=== PATIENT | female | born 1935 | race Caucasian/White ===

== ENCOUNTER → 2018-03-20 | Outpatient (CLI) | payer MEDICARE, OTHER ==
--- NOTE | 2018-03-20 15:25 | US ---
EXAMINATION TYPE: US kidneys/renal and bladder DATE OF EXAM: 03/20/2018 COMPARISON: NONE CLINICAL HISTORY: Renal Failure N18.9. 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 EXAM MEASUREMENTS: Right Kidney: 7.4 x 2.6 x 2.8 cm Left Kidney: 12.0 x 6.5 x 5.8 cm Right Kidney: atrophied, cyst measures 1.8 x 1.6 x 1.9 cm Left Kidney: No hydronephrosis or masses seen Bladder: wnl Bilateral Jets seen: No There is no evidence for hydronephrosis at this point in time. No nephrolithiasis is seen. No princess s are identified. The urinary bladder is anechoic. Bilateral ureteral jets are seen. IMPRESSION: 1. Atrophic changes of the right kidney with simple appearing cyst.
== END | disposition home or self-care (01) ==
LOC: RADUSWWP 14:44
PROVIDERS: ATTEND Family Medicine
DX: N28.1 Cyst of kidney, acquired (principal); N26.1 Atrophy of kidney (terminal)
CPT/HCPCS: 76770

== ENCOUNTER → 2018-03-27 | Outpatient (CLI) | payer MEDICARE, OTHER ==
--- NOTE | 2018-03-27 15:54 | BD ---
EXAMINATION TYPE: Axial Bone Density DATE OF EXAM: 03/27/2018 COMPARISON: 02.08.2016 CLINICAL HISTORY: 82 YR OLD FEMALE....ICD-10 CODE: Z78.0 ASYMPTOMATIC MENOPAUSAL STATE Height: 63.4 Weight: 161 FRAX RISK QUESTIONS: Secondary Osteoporosis: YES 3. Menopause before 45: YES RISK FACTORS HISTORY OF: Active: MUCH AGE WILL ALLOW Diet low in dairy products/other sources of calcium: NO Postmenopausal woman: SURGICAL AT 43 YRS OLD Take estrogen and/or progesterone medications: ESTROGEN FOR 5-7 YRS, NONE NOW Lost more than 2 inches in height since high school: YES Frequent falls: UNSTEADY Poor Health: ELDERLY MEDICATIONS: Thyroid Medications: YES, SYNTHROID, X10 YRS Additional Medications: BP MEDS Additional History: HYPERTENSION, ARTHRITIS, EXAM MEASUREMENTS: Bone mineral densitometry was performed using the [employer] System. Bone mineral density as measured about the Lumbar spine is: ----- L1-L4(G/cm2): 1.191 T Score Values are as follows: ----- L1: -1.6 ----- L2: -0.1 ----- L3: 1.5 ----- L4: 0.4 ----- L1-L4: 0.1 Bone mineral density has: Increased 6.7% SINCE 02.08.2016 Bone mineral density about the R hip (g/cm2): 0.887 Bone mineral density about the L hip (g/cm2): 0.864 T Score values are as follows: -----R Neck: -0.7 -----L Neck: -0.7 -----R Total: -1.1 -----L Total: -1.0 Bone mineral density has: Increased 3.4% SINCE 02.08.2016 FRAX%S: THERE IS A 10.5% CHANCE OF A MAJOR OSTEOPOROTIC FX AND A 2.0% FOR HIP FX.....PROBABILITY O F FX IN 10 YRS TIME IMPRESSION: Normal bone density NOTE: T-SCORE=SD OF THE YOUNG ADULT MEAN.
== END | disposition home or self-care (01) ==
LOC: RADBDWWP 14:22
PROVIDERS: ATTEND Family Medicine
DX: Z78.0 Asymptomatic menopausal state (principal)
CPT/HCPCS: 77080

== ENCOUNTER → 2019-03-01 | Outpatient (CLI) | payer MEDICARE, OTHER ==
--- NOTE | 2019-03-01 12:15 | XR ---
EXAMINATION TYPE: XR Hip Bilateral Complete DATE OF EXAM: 03/01/2019 COMPARISON: NONE HISTORY: Pain TECHNIQUE: 2 views submitted FINDINGS: Severe bilateral arthropathy of the right hip with hypertrophic changes. No acute fracture or disloca tion. Changes of sacroiliitis noted. IMPRESSION: 1. Severe bilateral hip arthropathy.
== END | disposition home or self-care (01) ==
LOC: RADXRMAIN 11:27
PROVIDERS: ATTEND Family Medicine
DX: M16.0 Bilateral primary osteoarthritis of hip (principal)
CPT/HCPCS: 73521

== ENCOUNTER → 2019-03-29 | Outpatient (CLI) | payer MEDICARE, OTHER ==
--- NOTE | 2019-04-02 10:43 | MM ---
Reason for exam: screening (asymptomatic). Last mammogram was performed 11 years and 1 month ago. History: Patient is postmenopausal. Physical Findings: A clinical breast exam by your physician is recommended on an annual basis and results should be correlated with mammographic findings. MG 3D Screening Mammo W/Cad Bilateral CC and MLO view(s) were taken. Prior study comparison: March 11, 2008, bilateral digital screening mammogram. March 08, 2007, CAD bilateral diagnostic mammogram. March 24, 2006, bilateral screening mammogram w/CAD. The breast tissue is heterogeneously dense. This may lower the sensitivity of mammography. No significant changes when compared with prior studies. ASSESSMENT: Negative, BI-RAD 1 RECOMMENDATION: Routine screening mammogram of both breasts in 1 year.
== END | disposition home or self-care (01) ==
LOC: RADMAMWWP 11:00
PROVIDERS: ATTEND Family Medicine
DX: Z12.31 Encounter for screening mammogram for malignant neoplasm of breast (principal)
CPT/HCPCS: 77063; 77067

== ENCOUNTER → 2019-05-21 | Outpatient (CLI) | payer MEDICARE, OTHER ==
[2019-05-21 12:31] LABS: HCT 40.3 % (34.0-46.0); MCH 30.6 pg (25.0-35.0); MCHC 32.2 g/dL (31.0-37.0); MCV 94.9 fL (80.0-100.0); Mean Platelet Volume 7.6; Platelet Count 221 k/uL (150-450); RBC 4.24 m/uL (3.80-5.40); RDW 14.1 % (11.5-15.5)
[2019-05-21 12:51] LABS: Potassium 5.2 mmol/L (3.5-5.1)
== END | disposition home or self-care (01) ==
LOC: LABPAT 11:49
PROVIDERS: ATTEND Internal Medicine Interventional Cardiology
DX: Z01.812 Encounter for preprocedural laboratory examination (principal); R07.89 Other chest pain; I10 Essential (primary) hypertension
CPT/HCPCS: 36415; 80051; 82565; 84520; 85027

== ENCOUNTER 2019-05-24 06:25 | Day surgery (SDC) | payer MEDICARE, OTHER ==
[2019-05-21 11:14] VITALS: BMI 28.9
[2019-05-24] MEDS ORDERED: NITROGLYCERIN SL TABS 0.4 MG TAB SUBLINGUAL PRN (06:29)
[2019-05-24] MEDS ORDERED: ASPIRIN 325 MG TAB PO STA (06:29)
[2019-05-24] MEDS ORDERED: SODIUM CHLORIDE 0.9% 1,000 ML in EMPTY BAG 1 BAG IV ONE (06:29)
[2019-05-24] MEDS ORDERED: ATORVASTATIN 80 MG TAB PO STA (06:29)
[2019-05-24] MEDS ORDERED: ALPRAZolam 0.5 MG TAB PO PRN (06:29)
[2019-05-24] MEDS ORDERED: ALPRAZolam 0.25 MG TAB PO PRN (06:29)
[2019-05-24 07:06] VITALS: TEMP 97.8
[2019-05-24] MEDS ORDERED: fentaNYL (PF) 50 MCG/ML 2 ML AMP ONE (07:18)
[2019-05-24] MEDS ORDERED: LIDOCAINE 1% INJ 10MG/ML (20 ML MDV) ONE (07:18)
[2019-05-24] MEDS ORDERED: VERAPAMIL 2.5 MG/ML 2 ML AMP ONE (07:18)
[2019-05-24] MEDS ORDERED: fentaNYL (PF) 50 MCG/ML 2 ML AMP IV ONE (07:47)
[2019-05-24] MEDS ORDERED: LIDOCAINE 1% INJ 10MG/ML (20 ML MDV) SQ ONE (07:49)
[2019-05-24] MEDS ORDERED: MIDAZOLAM (PF) 2 MG/2 ML VIAL IV ONE (07:49)
[2019-05-24] MEDS ORDERED: VERAPAMIL SYRINGE (5 MG/10 ML) INTRAARTER ONE (07:50)
[2019-05-24] MEDS ORDERED: HEPARIN SODIUM 1,000 UN/ML (10ML VL) ONE (07:56)
[2019-05-24] MEDS ORDERED: HEPARIN SODIUM 1,000 UN/ML (10ML VL) IV ONE (07:57)
[2019-05-24] MEDS ORDERED: IOPAMIDOL-370 125ML BTL INJ ONE (08:05)
[2019-05-24] MEDS ORDERED: RX INFO: IV CONTRAST WAS GIVEN 1 EACH MISC MISCELLANE PRN (08:16)
[2019-05-24] MEDS ORDERED: SODIUM CHLORIDE 0.9% 1,000 ML IV SCH (08:30)
--- NOTE | 2019-05-24 08:40 | CC ---
CARDIAC CATHETERIZATION REPORT Mrs. Sanchez is an 83-year-old female with known history of hypertension, hyperlipidemia, who has been complaining of episode of chest discomfort and had an abnormal myocardial perfusion imaging. She is scheduled to undergo total hip arthroplasty and because of her findings, recommendation was made regarding cardiac catheterization. The procedure as well as the risks and the complications were discussed with the patient who is in full understanding and agreement. PROCEDURE: Patient was brought to the lab scientist in a fasting semi-sedated state after receiving fentanyl and Benadryl and achieving moderate conscious sedated state. Using Xylocaine anesthesia in the Seldinger technique a 6-Ghanaian sheath was introduced in the right radial artery. Selective right and left coronary angiography was performed using 5- Ghanaian 3.5 bend right and left Jim catheter. Multiple views including hemiaxial views were obtained. Following that using the 5-Ghanaian left Jim catheter, the aortic valve was crossed and pressures were calculated. Following that, catheter and sheaths were removed. Hemostasis was obtained with deployment of a TR band. There was no immediate complication. The patient was returned to her room in stable condition. Of note, the patient received 4000 units of intravenous heparin as well as intra- arterial verapamil. FINDINGS: LEFT MAIN: This is a short size vessel bifurcating IN left circumflex, left anterior descending artery. Left main coronary artery has no evidence of high-grade stenosis. LEFT ANTERIOR DESCENDING ARTERY: This vessel tapers down distal 3rd and gives rise to 2 diagonal branches. Left anterior descending artery in mid segment has mild intimal disease of 10% to 20% without any evidence of high-grade stenosis. LEFT CIRCUMFLEX: This is a nondominant vessel giving rise to moderately sized obtuse marginal branch. The left circumflex has mild intimal disease of 10% to 20% without any evidence of high-grade stenosis. RIGHT CORONARY ARTERY: This is a large dominant vessel bifurcating distally PDA and posterolateral segment and branches. The right PDA reaches toward the inferoapical wall. The right coronary artery in mid segment has a 20% plaque. The rest of the vessel has no high-grade stenosis. LEFT VENTRICULOGRAM: The left ventriculogram was not performed. HEMODYNAMICS: There was no gradient across the aortic valve. The left ventricular end- diastolic pressure was 14 to 16 mmHg. CONCLUSION: 1. Mild triple-vessel coronary artery disease. 2. Normal ventricular end-diastolic pressure. RECOMMENDATION: In view of finding anatomy, I recommend to continue medical therapy with the aggressive coronary risk modifications that have been initiated. Those findings and recommendation were discussed with the patient and her family and they are in full understanding and agreement. Duration of procedure is 16 minutes. TOM / VINI: [id number] /
[2019-05-24] MEDS ORDERED: METOPROLOL TARTRATE 25 MG TAB PO SCH (09:00)
[2019-05-24] MEDS ORDERED: LISINOPRIL 10 MG TAB PO SCH (09:00)
[2019-05-24] MEDS ORDERED: LEVOTHYROXINE 100 MCG TAB PO SCH (09:00)
[2019-05-24] MEDS ORDERED: ASPIRIN 81 MG PO SCH (09:00)
[2019-05-24 09:29] VITALS: RESP 18
[2019-05-24 14:21] VITALS: BP 129/60
[2019-05-24 14:22] VITALS: PULSE 52
[2019-05-24] MEDS ORDERED: METOPROLOL TARTRATE 12.5 MG TAB PO SCH (21:00)
== END 2019-05-24 13:45 | disposition home or self-care (01) ==
LOC: CATHCVL 06:25
PROVIDERS: ATTEND Internal Medicine Interventional Cardiology
DX: I25.10 Atherosclerotic heart disease of native coronary artery without angina pectoris (principal); I10 Essential (primary) hypertension; Z01.810 Encounter for preprocedural cardiovascular examination; E78.2 Mixed hyperlipidemia; E78.00 Pure hypercholesterolemia, unspecified; Z82.49 Family history of ischemic heart disease and other diseases of the circulatory system; Z79.82 Long term (current) use of aspirin; Z79.890 Hormone replacement therapy; Z79.899 Other long term (current) drug therapy; Z88.2 Allergy status to sulfonamides; Z88.8 Allergy status to other drugs, medicaments and biological substances
CPT/HCPCS: 93458; J2001; J3010; J1644; Q9967; J2250

== ENCOUNTER → 2020-02-10 | Outpatient (CLI) | payer MEDICARE, OTHER ==
[2020-02-10 08:51] LABS: Basophils % (A) 1 %; Eosinophils # (A) 0.2 k/uL (0-0.7); Eosinophils % (A) 4 %; HCT 40.2 % (34.0-46.0); HGB 13.3 gm/dL (11.4-16.0); Lymphocytes # (A) 1.2 k/uL (1.0-4.8); Lymphocytes % (A) 19 %; MCV 93.8 fL (80.0-100.0); Mean Platelet Volume 7.6; Monocytes # (A) 0.3 k/uL (0-1.0); Monocytes % (A) 4 %; Neutrophils # (A) 4.3 k/uL (1.3-7.7); Neutrophils % (A) 70 %; Platelet Count 221 k/uL (150-450); RBC 4.28 m/uL (3.80-5.40); RDW 12.8 % (11.5-15.5); WBC 6.2 k/uL (3.8-10.6)
[2020-02-10 15:27] LABS: African American GFR (CKD) 48.1 (60.0-200.0); Albumin 4.2 g/dL (3.80-4.90); Albumin/Globulin Ratio 1.91 (1.60-3.17); Anion Gap 4.8 mmol/L (4.00-12.00); Calcium 9.6 mg/dL (8.7-10.3); Carbon Dioxide 27.2 mmol/L (21.6-31.8); Chol/HDL Ratio 4.51; Globulin 2.2 g/dL (1.6-3.3); Non-African American GFR(CKD) 41.5 (60.0-200.0); Total Bilirubin 0.6 mg/dL (0.3-1.2); Total Protein 6.4 g/dL (6.2-8.2)
[2020-02-10 15:36] LABS: T4, Free (Free Thyroxine) 1.5 ng/dL (0.80-1.80)
== END | disposition home or self-care (01) ==
LOC: LABWHC1 08:24
PROVIDERS: ATTEND Family Medicine
DX: E78.5 Hyperlipidemia, unspecified (principal); E03.9 Hypothyroidism, unspecified
CPT/HCPCS: 36415; 80053; 80061; 84439; 84443; 84481; 85025

== ENCOUNTER → 2020-05-26 | Outpatient (CLI) | payer MEDICARE, OTHER ==
--- NOTE | 2020-05-26 13:32 | BD ---
EXAMINATION TYPE: Axial Bone Density DATE OF EXAM: 05/26/2020 COMPARISON: 03/27/2018 CLINICAL HISTORY: Height: 63 IN Weight: 161 LBS FRAX RISK QUESTIONS: Secondary Osteoporosis: 3. Menopause before 45: YES AGE 43 PARTIAL HYST RISK FACTORS HISTORY OF: Active: MODERATE Postmenopausal woman: PARTIAL HYST AGE43 Lost more than 2 inches in height since high school: YES 3" Frequent falls: YES DEPTH PERCEPTION AND BALANCE MEDICATIONS: Thyroid Medications: YES Which medication: LEVOTHYROXIN How Lon+ YEARS Additional Medications: LEVOTHYROXINE, LISINOPRIL, EXAM MEASUREMENTS: Bone mineral densitometry was performed using the [employer] System. Bone mineral density as measured about the Lumbar spine is: ----- L1-L4(G/cm2): 1.086 T Score Values are as follows: ----- L2: -2.2 ----- L3: -0.8 ----- L4: 0.1 ----- L1-L4: -0.8 Bone mineral density has: Decreased -13.2% since study of: 03/27/2018 Bone mineral density about the R hip (g/cm2): 0.819 Bone mineral density about the L hip (g/cm2): 0.863 T Score values are as follows: -----R Neck: -1.6 -----L Neck: -1.3 -----R Total: -1.4 -----L Total: -1.4 Bone mineral density has: Decreased -4.6% since study of: 03/27/2018 IMPRESSION: Osteopenia bilateral femora. NOTE: T-SCORE=SD OF THE YOUNG ADULT MEAN.
--- NOTE | 2020-06-01 12:03 | MM ---
Reason for exam: screening (asymptomatic). Last mammogram was performed 1 year and 2 months ago. History: Patient is postmenopausal. Physical Findings: A clinical breast exam by your physician is recommended on an annual basis and results should be correlated with mammographic findings. MG 3D Screening Mammo W/Cad Bilateral CC and MLO view(s) were taken. Prior study comparison: March 29, 2019, bilateral MG 3d screening mammo w/cad. The breast tissue is heterogeneously dense. This may lower the sensitivity of mammography. There are benign appearing vascular calcifications bilaterally. There is no discrete abnormality. ASSESSMENT: Benign, BI-RAD 2 RECOMMENDATION: Routine screening mammogram of both breasts in 1 year.
== END | disposition home or self-care (01) ==
LOC: RADMAMWWP 08:45
PROVIDERS: ATTEND Family Medicine
DX: Z12.31 Encounter for screening mammogram for malignant neoplasm of breast (principal); Z78.0 Asymptomatic menopausal state; M85.89 Other specified disorders of bone density and structure, multiple sites
CPT/HCPCS: 77063; 77067; 77080

== ENCOUNTER → 2020-12-28 | Outpatient (CLI) | payer MEDICARE, OTHER ==
[2020-12-28 18:32] LABS: Basophils # (A) 0.05 X 10*3/uL (0.00-0.10); Basophils % (A) 0.7 %; Eosinophils % (A) 1.4 %; HCT 41.8 % (37.2-46.3); HGB 13.2 g/dL (12.0-15.0); Lymphocytes % (A) 16.5 %; MCH 31.7 pg (27.0-32.0); MCHC 31.6 g/dL (32.0-37.0); MCV 100.2 fL (80.0-97.0); Mean Platelet Volume 10.6 fL (9.5-12.2); Monocytes # (A) 0.46 X 10*3/uL (0.20-1.00); Monocytes % (A) 6.3 %; Neutrophils # (A) 5.46 X 10*3/uL (1.80-7.70); Neutrophils % (A) 74.8 %; Platelet Count 228 X 10*3/uL (140-440); RBC 4.17 X 10*6/uL (4.10-5.20); RDW 13.7 % (11.5-14.5); WBC 7.29 X 10*3/uL (4.50-10.00)
[2020-12-28 20:59] LABS: African American GFR (CKD) 47.7 (60.0-200.0); Albumin 4.5 g/dL (3.80-4.90); Albumin/Globulin Ratio 2.37 (1.60-3.17); Anion Gap 7.6 mmol/L (4.00-12.00); Calcium 10.1 mg/dL (8.7-10.3); Carbon Dioxide 27.4 mmol/L (21.6-31.8); Chol/HDL Ratio 4.22; Globulin 1.9 g/dL (1.6-3.3); Non-African American GFR(CKD) 41.2 (60.0-200.0); Potassium 4.4 mmol/L (3.5-5.5); Total Bilirubin 0.7 mg/dL (0.3-1.2); Total Protein 6.4 g/dL (6.2-8.2)
[2020-12-28 21:07] LABS: T4, Free (Free Thyroxine) 1.4 ng/dL (0.80-1.80)
== END | disposition home or self-care (01) ==
LOC: LABWHC1 12:10
PROVIDERS: ATTEND Nurse Practitioner Family
DX: E03.9 Hypothyroidism, unspecified (principal); E78.5 Hyperlipidemia, unspecified; I10 Essential (primary) hypertension; L29.8 Other pruritus; L82.1 Other seborrheic keratosis; B02.29 Other postherpetic nervous system involvement
CPT/HCPCS: 36415; 80053; 80061; 84439; 84443; 85025

== ENCOUNTER 2023-04-08 12:00 | Observation (INO) | payer MEDICARE, OTHER ==
[2023-04-08] MEDS ORDERED: LABETALOL 5 MG/ML VIAL MDV IVP STA (12:10)
[2023-04-08] MEDS ORDERED: SODIUM CHLORIDE 0.9% 1,000 ML IV STA (12:10)
[2023-04-08 12:21] LABS: Glucose,Whole Blood 103 mg/dL (70-110)
--- NOTE | 2023-04-08 12:28 | ED ---
Neuro HPI - General Chief Complaint: Neuro Symptoms/Deficit Stated Complaint: neuro issues Time Seen by Provider: 04/08/23 12:09 Source: patient, RN notes reviewed, old records reviewed Mode of arrival: wheelchair Limitations: no limitations - History of Present Illness Is the patient presenting with stroke symptoms?: Yes -: minutes(s) Initial Comments: This is a 7-year-old female with high blood pressure high cholesterol coming in for evaluation regards to possible stroke altered mental status drooling confusion. History of difficult to obtain from patient secondary to some underlying dementia and son at bedside provides history Location: speech, dysarthria History of same: No Place: home Severity: moderate Quality: weak Improves With: time Worsens With: none Context: sudden onset Associated Symptoms: confusion - Related Data Home Medications: Home Medications Medication Instructions Recorded Confirmed lisinopriL [Zestril] 10 mg PO DAILY 05/21/19 04/08/23 Ciprofloxacin HCl [Cipro] 250 mg PO BID 04/08/23 04/08/23 Citalopram Hydrobromide [CeleXA] 10 mg PO DAILY 04/08/23 04/08/23 Levothyroxine Sodium [Synthroid] 88 mcg PO DAILY 04/08/23 04/08/23 Multivit-Min/FA/Lycopen/Lutein 0.5 tab PO DAILY 04/08/23 04/08/23 [Centrum Silver Tablet] Prevagen 1 cap PO DAILY 04/08/23 04/08/23 Allergies/Adverse Reactions: Allergies Allergy/AdvReac Type Severity Reaction Status Date / Time cortisone Allergy Unknown Verified 04/08/23 15:08 Rtcrbva-MYS-GrF Reductase Allergy Unknown Verified 04/08/23 15:08 Inhibitor [Qucnaom-Qlu-Fpu Reductase Inhibitor] Sulfa (Sulfonamide Allergy Unknown Verified 04/08/23 15:08 Antibiotics) Review of Systems ROS Statement: Those systems with pertinent positive or pertinent negative responses have been documented in the HPI. ROS Other: All systems not noted in ROS Statement are negative. General Exam Limitations: no limitations General appearance: alert, in no apparent distress Head exam: Present: atraumatic, normocephalic, normal inspection Eye exam: Present: normal appearance, PERRL, EOMI. Absent: scleral icterus, con junctival injection, periorbital swelling ENT exam: Present: normal exam, mucous membranes moist Neck exam: Present: normal inspection. Absent: tenderness, meningismus, lymphadenopathy Respiratory exam: Present: normal lung sounds bilaterally. Absent: respiratory distress, wheezes, rales, rhonchi, stridor Cardiovascular Exam: Present: regular rate, normal rhythm, normal heart sounds. Absent: systolic murmur, diastolic murmur, rubs, gallop, clicks GI/Abdominal exam: Present: soft, normal bowel sounds. Absent: distended, tenderness, guarding, rebound, rigid Extremities exam: Present: normal inspection, full ROM, normal capillary refill. Absent: tenderness, pedal edema, joint swelling, calf tenderness Back exam: Present: normal inspection Neurological exam: Present: alert, oriented X3, CN II-XII intact Psychiatric exam: Present: normal affect, normal mood Skin exam: Present: warm, dry, intact, normal color. Absent: rash Stroke MDM - Lab Data Result diagrams: 04/08/23 12:24 04/08/23 12:24 Lab Results 04/08/23 04/08/23 04/08/23 Range/Units 12:19 12:24 12:24 WBC 6.3 (3.8-10.6) k/uL RBC 4.15 (3.80-5.40) m/uL Hgb 13.1 (11.4-16.0) gm/dL Hct 39.3 (34.0-46.0) % MCV 94.7 (80.0-100.0) fL MCH 31.5 (25.0-35.0) pg MCHC 33.2 (31.0-37.0) g/dL RDW 12.6 (11.5-15.5) % Plt Count 193 (150-450) k/uL MPV 8.0 Neutrophils % 73 % Lymphocytes % 15 % Monocytes % 6 % Eosinophils % 3 % Basophils % 0 % Neutrophils # 4.6 (1.3-7.7) k/uL Lymphocytes # 1.0 (1.0-4.8) k/uL Monocytes # 0.4 (0-1.0) k/uL Eosinophils # 0.2 (0-0.7) k/uL Basophils # 0.0 (0-0.2) k/uL PT 10.2 (9.0-12.0) sec INR 1.0 (<1.2) APTT 26.0 (22.0-30.0) sec Sodium (137-145) mmol/L Potassium (3.5-5.1) mmol/L Chloride (98-107) mmol/L Carbon Dioxide (22-30) mmol/L Anion Gap mmol/L BUN (7-17) mg/dL Creatinine (0.52-1.04) mg/dL Est GFR (CKD-EPI)AfAm (>60 ml/min/1.73 sqM) Est GFR (CKD-EPI)NonAf (>60 ml/min/1.73 sqM) Glucose (74-99) mg/dL POC Glucose (mg/dL) 103 (70-110) mg/dL POC Glu It Security Manager ID Dennis Reyes Calcium (8.4-10.2) mg/dL Total Bilirubin (0.2-1.3) mg/dL AST (14-36) U/L ALT (4-34) U/L Alkaline Phosphatase (38-126) U/L Creatine Kinase (30-135) U/L Troponin I (0.000-0.034) ng/mL Total Protein (6.3-8.2) g/dL Albumin (3.5-5.0) g/dL 04/08/23 04/08/23 Range/Units 12:24 12:24 WBC (3.8-10.6) k/uL RBC (3.80-5.40) m/uL Hgb (11.4-16.0) gm/dL Hct (34.0-46.0) % MCV (80.0-100.0) fL MCH (25.0-35.0) pg MCHC (31.0-37.0) g/dL RDW (11.5-15.5) % Plt Count (150-450) k/uL MPV Neutrophils % % Lymphocytes % % Monocytes % % Eosinophils % % Basophils % % Neutrophils # (1.3-7.7) k/uL Lymphocytes # (1.0-4.8) k/uL Monocytes # (0-1.0) k/uL Eosinophils # (0-0.7) k/uL Basophils # (0-0.2) k/uL PT (9.0-12.0) sec INR (<1.2) APTT (22.0-30.0) sec Sodium 139 (137-145) mmol/L Potassium 4.6 (3.5-5.1) mmol/L Chloride 107 (98-107) mmol/L Carbon Dioxide 24 (22-30) mmol/L Anion Gap 8 mmol/L BUN 31 H (7-17) mg/dL Creatinine 1.40 H (0.52-1.04) mg/dL Est GFR (CKD-EPI)AfAm 39 (>60 ml/min/1.73 sqM) Est GFR (CKD-EPI)NonAf 34 (>60 ml/min/1.73 sqM) Glucose 98 (74-99) mg/dL POC Glucose (mg/dL) (70-110) mg/dL POC Glu It Security Manager ID Calcium 9.3 (8.4-10.2) mg/dL Total Bilirubin 0.5 (0.2-1.3) mg/dL AST 25 (14-36) U/L ALT 18 (4-34) U/L Alkaline Phosphatase 61 (38-126) U/L Creatine Kinase 113 (30-135) U/L Troponin I <0.012 (0.000-0.034) ng/mL Total Protein 6.6 (6.3-8.2) g/dL Albumin 4.0 (3.5-5.0) g/dL - NIH Stroke Scale 1a. Level of Consciousness: (0) alert 1b. LOC Questions: (0) answers correctly 1c. LOC Commands: (0) performs tasks correctly 2. Best Gaze: (0) normal 3. Visual: (0) no visual loss 4. Facial Palsy: (0) normal symmetrical movement 5a. Motor Arm Left: (0) no drift 5b. Motor Arm Right: (0) no drift 6a. Motor Leg Left: (0) no drift 6b. Motor Leg Right: (0) no drift 7. Limb Ataxia: (0) absent 8. Sensory: (0) normal 9. Best Language: (0) no aphasia 10. Dysarthria: (0) normal 11. Extinction/Inattention: (0) no abnormality - Thrombolytic Inclusion/Exclusion Thrombolytic Inclusion Criteria: Symptom Onset < 4.5 h - Core Measures Measure Exclusions: contraindicated (Patient was contraindicated for TPA secondary to resolution of symptoms) - Medical Decision Making 87 female DF with altered mental status slurred speech and confusion TIA symptoms resolved on arrival to emergency department. Patient will admit for neurology consult patient does have recent urinary tract infection diagnosed - Radiology Data Radiology results: report reviewed (CT brain CT had neck negative for acute disease interpreted by me), image reviewed - EKG Data -: EKG Interpreted by Me (EKG is sinus 69 ME 190 QRS 90 QTC 4:15) Past Medical History Past Medical History: Eye Disorder, Hypertension, Osteoarthritis (OA), Thyroid Disorder Additional Past Medical History / Comment(s): one functioning kidney, essential tremors hands, artificial left eye History of Any Multi-Drug Resistant Organisms: None Reported Past Surgical History: Hysterectomy, Orthopedic Surgery Additional Past Surgical History / Comment(s): left eye removed, right shoulder surg. Past Anesthesia/Blood Transfusion Reactions: Postoperative Nausea & Vomiting (PONV) Past Psychological History: Anxiety, Depression Past Alcohol Use History: Occasional Past Drug Use History: None Reported - Past Family History Mother Family Medical History: No Reported History Course Vital Signs 04/08/23 04/08/23 04/08/23 12:01 12:05 13:04 Temperature 97.6 F 97.6 F Pulse Rate 73 73 60 Pulse Rate [ Pulse Oximetery ] Respiratory 16 20 15 Rate Blood Pressure 180/73 180/73 Blood Pressure [Right Arm] O2 Sat by Pulse 97 98 Oximetry 04/08/23 04/08/23 13:30 15:39 Temperature 97.4 F L Pulse Rate 56 L Pulse Rate [ 71 Pulse Oximetery ] Respiratory 18 17 Rate Blood Pressure 175/75 Blood Pressure 203/75 [Right Arm] O2 Sat by Pulse 99 Oximetry - Reevaluation(s) Reevaluation #1: 04/08/23 16:12 Medical record is reviewed Code stroke paged on patient arrival Reevaluation #2: 04/08/23 16:12 Patient symptoms remain resolved Reevaluation #3: 04/08/23 16:12 patient informed results questions answered Reevaluation #4: 04/08/23 16:13 Was pt. sent in by a medical professional or institution? @ -no Did you speak to anyone other than the patient for history? @ -no Did you review nursing and triage notes? @ -agree Were old charts reviewed? @ -no Differential Diagnosis? @ -prior EKG interpreted by me (3pts min.)? @ -yes X-rays interpreted by me (1pt min.)? @ -no CT interpreted by me (1pt min.)? @ -no U/S interpreted by me (1pt. min.)? @ -no What testing was considered but not performed? (CT, X-rays, U/S, labs)? Why? @ -no What meds were considered but not given? Why? @ -no Did you discuss the management of the patient with other professionals? @ -no Did you reconcile home meds? @ -no Was smoking cessation discussed for >3mins.? @ -no Was critical care preformed (if so, how long)? @ -no Were there social determinants of health that impacted care today? How? (Homelessness, low income, unemployed, alcoholism, drug addiction, transportation, low edu. Level, literacy, decrease access to med. care, longterm, rehab)? @ -no Was there de-escalation of care discussed even if they declined? (Discuss DNR or withdrawal of care, Hospice)? @ -no What co-morbidities impacted this encounter? (DM, HTN, Smoking, COPD, CAD, Cancer, CVA, Hep., AIDS, mental health diagnosis, sleep apnea, morbid obesity)? @ -none Was patient admitted / discharged? @ - Undiagnosed new problem with uncertain prognosis? @ -no Drug Therapy requiring intensive monitoring for toxicity (Heparin, Nitro, Insulin, Cardizem)? @ -no Were any procedures done? @ -no Diagnosis/symptom? @ - Acute, or Chronic, or Acute on Chronic? @ -no Uncomplicated (without systemic symptoms) or Complicated (systemic symptoms)? @ -uncomplicated Side effects of treatment? @ -no Exacerbation, Progression, or Severe Exacerbation] @ -no Poses a threat to life or bodily function? @ -no Reevaluation #5: 04/08/23 16:13 Differential Altered Mental Status: Hypoglycemia, DKA, hypercapnia, ETOH, overdose, CO poisoning, trauma, myxedema coma, HTN encephalopathy, infection, encephalitis, psychosis, intercranial hemorrhage, hepatic encephalopathy, meningitis, CVA, this is not meant to be an all-inclusive list - Consultations Consultation #1: spoke with the main physicians who agree to admit the patient Disposition Clinical Impression: Transient cerebral ischemia, UTI (urinary tract infection) Disposition: ADMITTED IP TO THIS HOSP Condition: Fair Is patient prescribed a controlled substance at d/c from ED?: No Time of Disposition: 14:10
[2023-04-08 12:34] LABS: Basophils % (A) 0 %; Eosinophils # (A) 0.2 k/uL (0-0.7); Eosinophils % (A) 3 %; HCT 39.3 % (34.0-46.0); HGB 13.1 gm/dL (11.4-16.0); Lymphocytes % (A) 15 %; MCH 31.5 pg (25.0-35.0); MCHC 33.2 g/dL (31.0-37.0); MCV 94.7 fL (80.0-100.0); Monocytes # (A) 0.4 k/uL (0-1.0); Monocytes % (A) 6 %; Neutrophils # (A) 4.6 k/uL (1.3-7.7); Neutrophils % (A) 73 %; Platelet Count 193 k/uL (150-450); RBC 4.15 m/uL (3.80-5.40); RDW 12.6 % (11.5-15.5); WBC 6.3 k/uL (3.8-10.6)
[2023-04-08 12:43] LABS: Prothrombin Time 10.2 sec (9.0-12.0)
[2023-04-08 12:54] LABS: ALT 18 U/L (4-34); AST 25 U/L (14-36); African American GFR (CKD) 39 (>60 ml/min/1.73 sqM); Alkaline Phosphatase 61 U/L (38-126); Anion Gap 8 mmol/L; Blood Urea Nitrogen 31 mg/dL (7-17); Calcium 9.3 mg/dL (8.4-10.2); Carbon Dioxide 24 mmol/L (22-30); Chloride 107 mmol/L (98-107); Creatine Kinase 113 U/L (30-135); Glucose 98 mg/dL (74-99); Non-African American GFR(CKD) 34 (>60 ml/min/1.73 sqM); Potassium 4.6 mmol/L (3.5-5.1); Sodium 139 mmol/L (137-145); Total Bilirubin 0.5 mg/dL (0.2-1.3); Total Protein 6.6 g/dL (6.3-8.2)
--- NOTE | 2023-04-08 13:11 | CT ---
EXAMINATION TYPE: CT brain wo con for TPA CT DLP: 1139.4 mGycm, Automated exposure control for dose reduction was used. DATE OF EXAM: 04/08/2023 12:59 PM COMPARISON: None. CLINICAL INDICATION:Female, 87 years old with history of Neuro deficit, acute, stroke suspected, CODE STROKE TECHNIQUE: Brain: Axial CT images of the brain were obtained with coronal and sagittal reformats created and rev iewed. Contrast used: None. Oral contrast used: None. FINDINGS: Brain: Extra-axial spaces: No abnormal extra-axial fluid collections. Ventricular system: Dilatation in proportion to cerebral atrophy. Cerebral parenchyma: Cerebral atrophy. No acute intraparenchymal hemorrhage or mass effect. The quiroz -white junction is well differentiated. Scattered hypoattenuating areas are seen within the white mat ter. Cerebellum: Unremarkable. Mass effect: No evidence of midline shift. Intracranial vasculature: Atherosclerotic calcifications of the intracranial vessels. Soft tissues: Normal. Calvarium/osseous structures: No depressed skull fracture. Paranasal sinuses and mastoid air cells: Mild scattered paranasal sinus disease. Visualized orbits: Prosthetic left the right lobe is intact lens is absent. IMPRESSION: 1. No acute intracranial process. 2. Nonspecific white matter changes, likely secondary to chronic small vessel ischemic disease.
--- NOTE | 2023-04-08 13:35 | CT ---
EXAMINATION TYPE: CT angio head neck CT DLP: 459 mGycm, Automated exposure control for dose reduction was used. DATE OF EXAM: 04/08/2023 1:22 PM COMPARISON: CT head same day. CLINICAL INDICATION:Female, 87 years old with history of Neuro deficit, acute, stroke suspected; PHH, CODE STROKE TECHNIQUE: Axially acquired helical CT angiogram of the head and neck was obtained with contrast. Axi al images are supplemented with 3D reconstructions which [facility] NASCET criteria used. Contrast used:65 ML mL of Isovue 370 without and with IV Contrast, Oral contrast used: None. FINDINGS: CTA HEAD: No evidence of acute intracranial hemorrhage, mass effect, or midline shift. The ventricles, sulci, a nd cisterns are unremarkable. The visualized portions of the internal carotid arteries, middle cerebral arteries, anterior cerebral arteries, and posterior cerebral arteries are patent. Bilateral intracranial internal carotid arteri es siphon calcifications. The basilar and vertebral arteries are patent. Intracranial left vertebral artery calcifications. CTA NECK: Right Carotid System: The common carotid and external carotid arteries are patent. There is approximately 50% stenosis at t he proximal internal carotid artery secondary to calcified/noncalcified plaquing. The rest of the int ernal carotid artery is patent. Left Carotid System: The common carotid and external carotid arteries are patent. There is approximately 25% stenosis at t he carotid bifurcation secondary to calcified/noncalcified plaquing. The rest of the internal carotid artery is patent. Vertebral arteries are patent without evidence hemodynamically significant stenosis. There is a four-vessel aortic arch. The origins of the great vessels are patent. No evidence of hemod ynamically significant stenosis. Upper thorax: IMPRESSION: 1. No evidence of dissection of the cervical internal carotid arteries or vertebral arteries. 2. No evidence of intracranial high-grade stenosis or intracranial aneurysm. 3. 50% stenosis of the right internal carotid artery and 25% stenosis of the left carotid bifurcation .
--- NOTE | 2023-04-08 14:11 | XR ---
EXAMINATION TYPE: XR chest 2V DATE OF EXAM: 04/08/2023 1:50 PM COMPARISON: None TECHNIQUE: XR chest 2V Frontal and lateral views of the chest. CLINICAL INDICATION:Female, 87 years old with history of altered mental status; FINDINGS: Lungs/Pleura: There is no evidence of pleural effusion, focal consolidation, or pneumothorax. Pulmonary vascularity: Unremarkable. Heart/mediastinum: Cardiomediastinal silhouette is prominent in size. Musculoskeletal: No acute osseous pathology. Right shoulder arthroplasty with hardware intact. IMPRESSION: No acute cardiopulmonary disease/process.
[2023-04-08] MEDS ORDERED: MORPHINE SULFATE 4 MG/ML SYRINGE IV PRN (14:22)
[2023-04-08] MEDS ORDERED: NALOXONE 0.4 MG/ML 1 ML VIAL IV PRN (14:22)
[2023-04-08] MEDS ORDERED: ONDANSETRON 4 MG/2 ML VIAL IVP PRN (14:22)
[2023-04-08] MEDS: SODIUM CHLORIDE 0.9% 1,000 ML IV SCH ×3 (15:57→23:53)
[2023-04-08] MEDS: amLODIPine 5 MG TAB PO SCH (15:57)
[2023-04-08 17:07] LABS: Appearance,Urine Clear (Clear); Bilirubin,Urine Negative (Negative); Blood,Urine Trace (Negative); Color,Urine Light Yellow; Glucose,Urine (UA) Negative (Negative); Ketones,Urine Negative (Negative); Leukocyte Esterase,Urine Small (Negative); Nitrite,Urine Negative (Negative); Protein,Urine Trace (Negative); RBC,Urine 6 /hpf (0-5); Specific Gravity,Urine 1.028 (1.001-1.035); Urobilinogen,Urine <2.0 mg/dL (<2.0); WBC,Urine 5 /hpf (0-5)
[2023-04-08] MEDS: ACETAMINOPHEN TAB 325 MG TAB PO PRN (17:46)
--- NOTE | 2023-04-08 18:25 | XR ---
EXAMINATION TYPE: XR Hip Complete RT DATE OF EXAM: 04/08/2023 5:47 PM INDICATION: Patient age:Female; 87 years old; Reason for study: right hip pain; COMPARISON: None. TECHNIQUE: The right hip was examined in the frontal and lateral projections and a AP pelvis. FINDINGS: No evidence for acute process, joint dislocation or significant soft tissue swelling. Moder ate to severe degeneration with osteophyte formation of the femoral head and acetabulum and disc spac e narrowing. IMPRESSION: 1. No acute process. 2. Moderate to severe right hip osteoarthrosis.
--- NOTE | 2023-04-08 23:44 | P.HPIM ---
History of Present Illness H&P Date: 04/08/23 Chief Complaint: Altered mental status Patient is a 87-year-old female with a known history of hypertension, hypothyroidism, dementia and oriented x1-2 at baseline, anxiety/depression was brought to the hospital for possible strokelike symptoms. Patient could not provide much history. Her son was able to provide some history. She was having right lower abdominal and left groin pain yesterday and was seen by her primary care physician. Urine sample was obtained and patient was started on antibiotics in the form of ciprofloxacin. Today patient woke up in the morning and was able to take her breakfast and was up and walking suddenly started drooling and confused and unable to answer questions appropriately. Patient was brought to ER for further evaluation. Her symptoms were resolved by the time she came to the hospital. Currently her mentation is baseline. No facial droop or slurred speech noted. Denies any focal weakness. Patient is also complaining of right hip and groin pain. EKG showed sinus rhythm. CT head showed no acute intracranial process. Nonspecific white matter changes. CT angiogram of the head and neck showed no evidence of dissection of the cervical internal carotid arteries or vertebral arteries. No evidence of intracranial high-grade stenosis or intracranial aneurysm. 50% stenosis of the right ICA and 25% stenosis of the left ICA bifurcation. Chest x-ray showed no acute cardiopulmonary process. Hip x-ray showed moderate to severe right hip osteoarthrosis. Laboratory data showed WBC 6.3 hemoglobin 13.1 and platelets 193 Urinalysis is negative for.. Data sodium 139 potassium 4.6 BUN 31 creatinine 1.4 Review of Systems Complete review of systems could not be obtained from the patient except as per HPI Past Medical History Past Medical History: Eye Disorder, Hypertension, Osteoarthritis (OA), Thyroid Disorder Additional Past Medical History / Comment(s): one functioning kidney, essential tremors hands, artificial left eye History of Any Multi-Drug Resistant Organisms: None Reported Past Surgical History: Hysterectomy, Orthopedic Surgery Additional Past Surgical History / Comment(s): left eye removed, right shoulder surg. Past Anesthesia/Blood Transfusion Reactions: Postoperative Nausea & Vomiting (PONV) Past Psychological History: Anxiety, Depression Past Alcohol Use History: Occasional Past Drug Use History: None Reported - Past Family History Mother Family Medical History: No Reported History Medications and Allergies Home Medications Medication Instructions Recorded Confirmed Type lisinopriL [Zestril] 10 mg PO DAILY 07/30/19 06/17/23 History Ciprofloxacin HCl [Cipro] 250 mg PO BID 04/08/23 04/08/23 History Citalopram Hydrobromide [CeleXA] 10 mg PO DAILY 04/08/23 04/08/23 History Levothyroxine Sodium [Synthroid] 88 mcg PO DAILY 04/08/23 04/08/23 History Multivit-Min/FA/Lycopen/Lutein 0.5 tab PO DAILY 04/08/23 04/08/23 History [Centrum Silver Tablet] Prevagen 1 cap PO DAILY 04/08/23 04/08/23 History Allergies Allergy/AdvReac Type Severity Reaction Status Date / Time cortisone Allergy Unknown Verified 04/08/23 15:08 Bvzwcnk-CHL-WzT Reductase Allergy Unknown Verified 04/08/23 15:08 Inhibitor [Wcrydrv-Sai-Fsd Reductase Inhibitor] Sulfa (Sulfonamide Allergy Unknown Verified 04/08/23 15:08 Antibiotics) Physical Exam Vitals: Vital Signs Temp Pulse Pulse Resp BP BP Pulse Ox 04/08/23 17:10 60 180/86 04/08/23 15:39 97.4 F L 71 17 203/75 99 04/08/23 13:30 56 L 18 175/75 04/08/23 13:04 60 15 04/08/23 12:05 97.6 F 73 20 180/73 98 04/08/23 12:01 97.6 F 73 16 180/73 97 Intake and Output 04/08/23 04/08/23 04/08/23 06:59 14:59 22:59 Other: Voiding Method Toilet Weight 63.503 kg 63.503 kg PHYSICAL EXAMINATION: Patient is lying in the bed comfortably, no acute distress, awake alert and oriented x2.. HEENT: Normocephalic. Neck is supple. Pupils reactive. Nostrils clear. Oral ca vity is moist. Neck reveals no JVD, carotid bruits, or thyromegaly. CHEST EXAMINATION: Trachea is central. Symmetrical expansion. Lung rodriguez clear to auscultation and percussion. CARDIAC: Normal S1, S2 with no gallops. No murmurs ABDOMEN: Soft. Bowel sounds present. Nontender. No organomegaly. No abdominal bruits. Extremities: reveal no edema. No clubbing or cyanosis Neurologically awake, alert, oriented x2. Able to move extremities while in bed. No gross focal neurological deficit. Patient does have cognitive impairment. Skin: No rash or skin lesions. Psychiatric: Coperative. Nonsuicidal, Musculoskeletal: No joint swelling or deformity. Normal range of motion. Results CBC & Chem 7: 04/08/23 12:24 04/08/23 12:24 Labs: Abnormal Lab Results - Last 24 Hours (Table) 04/08/23 04/08/23 Range/Units 12:24 16:53 BUN 31 H (7-17) mg/dL Creatinine 1.40 H (0.52-1.04) mg/dL Urine Protein Trace H (Negative) Urine Blood Trace H (Negative) Ur Leukocyte Esterase Small H (Negative) Urine RBC 6 H (0-5) /hpf Thrombosis Risk Factor Assmnt - DVT/VTE Prophylaxis DVT/VTE Prophylaxis: Pharmacologic Prophylaxis ordered Assessment and Plan Assessment: Altered mental status. Patient was drooling and unable to answer questions appropriately as per family. Rule out TIA versus metabolic encephalopathy. Hypertensive urgency with SBP greater than 200 on admission. Acute urinary tract infection diagnosed yesterday at PCPs office and is on antibiotics. Right lower abdominal pain and groin pain. Acute kidney injury likely prerenal Hypertension Hypothyroidism Osteoarthritis Anxiety/depression Dementia. Patient is awake alert and oriented x2 at baseline. DVT prophylaxis with heparin subcu Plan: Patient will be continued on IV hydration with normal saline. Monitor renal function. Will be continued on antibiotics in the form of ceftriaxone for recent urinary tract infection diagnosed yesterday at PCPs office.. Patient had stroke work-up including CT head, CT angiogram of the head and neck was done. Follow-up TSH B12 folate levels. Neurology was consulted for evaluation. Right hip x-ray to rule out any fractures. Patient does take lisinopril/hydrochlorothiazide at home which is on hold due to BENJI. Patient was started on Norvasc and titrate blood pressure medications as needed. Patient's mentation is back to baseline as per family. Continue to follow closely. Prognosis is guarded. Time with Patient: Greater than 30
[2023-04-09] MEDS: LEVOTHYROXINE 88 MCG TAB PO SCH (06:01)
[2023-04-09] MEDS: SODIUM CHLORIDE 0.9% 1,000 ML IV SCH ×3 (06:03→16:01)
[2023-04-09 06:47] LABS: ALT 15 U/L (4-34); AST 22 U/L (14-36); African American GFR (CKD) 55 (>60 ml/min/1.73 sqM); Albumin 3.5 g/dL (3.5-5.0); Albumin/Globulin Ratio 1.5; Alkaline Phosphatase 56 U/L (38-126); Anion Gap 5 mmol/L; Blood Urea Nitrogen 23 mg/dL (7-17); Calcium 8.6 mg/dL (8.4-10.2); Carbon Dioxide 26 mmol/L (22-30); Chloride 109 mmol/L (98-107); Globulin 2.4 g/dL; Glucose 85 mg/dL (74-99); Non-African American GFR(CKD) 48 (>60 ml/min/1.73 sqM); Phosphorus 3.5 mg/dL (2.5-4.5); Potassium 4.7 mmol/L (3.5-5.1); Sodium 140 mmol/L (137-145); Total Bilirubin 0.5 mg/dL (0.2-1.3); Total Protein 5.9 g/dL (6.3-8.2)
[2023-04-09] MEDS: HEPARIN SODIUM,PORCINE/PF 5,000 UNIT/0.5 ML SYRINGE SQ SCH ×2 (08:41→21:08)
[2023-04-09] MEDS: hydrALAZINE HCL 25 MG TAB PO SCH ×3 (08:41→20:37)
[2023-04-09] MEDS: amLODIPine 5 MG TAB PO SCH (08:41)
[2023-04-09] MEDS: CITALOPRAM HYDROBROMIDE 10 MG TAB PO SCH (08:41)
[2023-04-09] MEDS: ACETAMINOPHEN TAB 325 MG TAB PO PRN (08:46)
[2023-04-09] MEDS ORDERED: CYANOCOBALAMIN 1,000 MCG/ML 1 ML VIAL IM ONE (16:00)
[2023-04-09] MEDS ORDERED: ASPIRIN 81 MG PO STA (16:33)
[2023-04-09] MEDS: CLOPIDOGREL 75 MG TAB PO SCH (16:43)
--- NOTE | 2023-04-09 16:58 | P.CNNES ---
History of Present Illness Consult date: 04/09/23 Requesting physician: Michael Tomas Reason for Consult: TIA History of Present Illness: Patient is a 87-year-old left-handed female with history of hypertension, came to the hospital yesterday at 12 noon for strokelike symptoms. Patient's son was also present, who provided with a history. On Monday, 2 days ago, patient was complaining of lower abdominal pain versus pain in the hip. Patient's son took her to a primary physician and was diagnosed with UTI and given antibiotics. Patient lives by herself, but patient's son took her to his home overnight. She took Cipro on Monday night and then Monday morning. She had breakfast Monday morning and was feeling fine. At 9:30 AM, patient's son saw that she was drooling on herself, and when she talked, the words were incoherent, did not make sense, could not tell how many sons she has. When patient's son asked her to tell his name, she struggled with it. There was no focal weakness or other symptoms with it. He brought her to the hospital and by the time she arrived to the hospital, she was understanding what was going on. Overall symptoms lasted for about 1 to 1-1/2 hours and it went away. At present she is back to baseline. Vital signs on arrival blood pressure 180/73, pulse rate 73 temperature 97.6. Blood test shows normal CBC, PT/PTT, normal electrolytes, BUN 31, creatinine 1.40, hepatic panel is normal, troponin negative, UA showed trace blood, small amount of leukocyte Estrace. Vitamin B12 284, TSH 1.17. CT head showed no acute intracranial process. Nonspecific white matter changes, likely secondary to chronic small vessel ischemic disease. EKG shows normal sinus rhythm. CTA of head and neck revealed no evidence of dissection of the cervical internal carotid arteries or vertebral arteries. No evidence of intracranial high-grade stenosis or intracranial aneurysm. 50% stenosis of the right ICA and 25% stenosis of the left carotid bifurcation. Chest x-ray showed no acute cardiopulmonary disease. Hip x-ray showed no acute process. Moderate to severe right hip osteoarthrosis. Patient had a brain MRI performed 06/18/2022 for tremors, CVA, which showed cerebral atrophy. Extensive white matter changes likely related to microvascular ischemia. No cortical infarct. Patient's home medications include lisinopril, multivitamin, levothyroxine, Celexa, Cipro. Patient does not take any antiplatelet medication at home. She used to take aspirin in the past, but stopped taking it because she felt that she was taking "too many medication". Patient denies any history of clinical stroke. Patient was checked out for Parkinson's for her tremor, which was ruled out. The neurologist stated that she probably had a mini stroke in the past although patient never had any clinical stroke. 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 Patient smokes one pack per day only for 3 years, quit in 1962. Does not drink alcohol. Patient lives by herself, a lady comes to see her every Monday and where is the patient's son see her every Monday. Review of Systems Constitutional: Denies chills, Denies fever Eyes: denies blurred vision, denies diplopia, denies pain Ears: deny: decreased hearing, ear discharge Ears, nose, mouth and throat: Denies headache, Denies sore throat Cardiovascular: Denies chest pain, Denies shortness of breath Respiratory: Denies cough, Denies excessive sputum Gastrointestinal: Reports abdominal pain, Denies diarrhea, Denies nausea, Denies vomiting Genitourinary: Denies dysuria, Denies hematuria Musculoskeletal: Reports low back pain, Denies myalgias, Denies neck pain Integumentary: Denies pruritus, Denies rash Neurological: Reports as per HPI Psychiatric: Reports depression, Denies anxiety Endocrine: Reports fatigue, Denies weight change Past Medical History Past Medical History: Eye Disorder, Hypertension, Osteoarthritis (OA), Thyroid Disorder Additional Past Medical History / Comment(s): one functioning kidney, essential tremors hands, artificial left eye History of Any Multi-Drug Resistant Organisms: None Reported Past Surgical History: Hysterectomy, Orthopedic Surgery Additional Past Surgical History / Comment(s): left eye removed, right shoulder surg. Past Anesthesia/Blood Transfusion Reactions: Postoperative Nausea & Vomiting (PONV) Past Psychological History: Anxiety, Depression Past Alcohol Use History: Occasional Past Drug Use History: None Reported - Past Family History Mother Family Medical History: No Reported History Medications and Allergies Home Medications Medication Instructions Recorded Confirmed Type lisinopriL [Zestril] 10 mg PO DAILY 05/21/19 04/08/23 History Ciprofloxacin HCl [Cipro] 250 mg PO BID 04/08/23 04/08/23 History Citalopram Hydrobromide [CeleXA] 10 mg PO DAILY 04/08/23 04/08/23 History Levothyroxine Sodium [Synthroid] 88 mcg PO DAILY 04/08/23 04/08/23 History Multivit-Min/FA/Lycopen/Lutein 0.5 tab PO DAILY 04/08/23 04/08/23 History [Centrum Silver Tablet] Prevagen 1 cap PO DAILY 04/08/23 04/08/23 History Allergies Allergy/AdvReac Type Severity Reaction Status Date / Time cortisone Allergy Unknown Verified 04/08/23 15:08 Enrwmmu-ZHY-TfJ Reductase Allergy Unknown Verified 04/08/23 15:08 Inhibitor [Veurbyc-Dtf-Efv Reductase Inhibitor] Sulfa (Sulfonamide Allergy Unknown Verified 04/08/23 15:08 Antibiotics) Physical Examination - Vital Signs Vital Signs: Vital Signs Temp Pulse Resp BP BP Pulse Ox 04/09/23 14:46 97.8 F 70 17 148/70 98 04/09/23 12:19 97 04/09/23 07:00 97.6 F 60 17 157/70 98 04/09/23 04:16 97.4 F L 56 L 18 170/56 99 04/08/23 17:10 60 180/86 04/08/23 15:39 97.4 F L 71 17 203/75 99 Intake and Output 04/09/23 04/09/23 04/09/23 06:59 14:59 22:59 Intake Total 360 Balance 360 Intake: Oral 360 Other: Voiding Method Toilet # Voids 1 4 2 Patient is an elderly female, very pleasant, in no acute distress. Patient is alert awake oriented to time place and person. Speech and language f unctions are normal. Patient can name and repeat very well. No aphasia or dysarthria. Attention, concentration and fund of knowledge is adequate. On cranial nerve examination, patient's left eye is prosthetic. Her right pupil is surgical, round and reacting. Her visual rodriguez are full on confrontation with the right eye, with no neglect on double simultaneous stimulation. Extraocular muscles are intact with no nystagmus. Face is symmetric, tongue protrudes to the midline. Palatal elevation and sensation normal, hearing and shoulder shrug normal, facial sensation normal. On muscle strength testing, there is no pronator drift and the strength is normal in arms and legs distally and proximally. Deep tendon reflexes are symmetric and hypoactive and plantars downgoing. Sensory to touch is equal with no neglect on double simultaneous stimulation. Cerebellar function showed no ataxia for [id number]-jb-dptf testing. No dysdiadochokinesia. No ataxia for hvps-nd-ybuh testing on either side. Tone and bulk of muscles normal. Gait deferred.. On general examination, there is no carotid bruit or murmur, S1-S2 audible. Chest is clear on consultation. Abdomen is soft nontender. No organomegaly, bowel sounds present. Peripheral pulses are present. No edema. Results - Laboratory Findings CBC and BMP: 04/08/23 12:24 04/09/23 06:04 Abnormal Lab Findings: Abnormal Labs 04/08/23 04/08/23 04/09/23 12:24 16:53 06:04 Chloride 109 H BUN 31 H 23 H Creatinine 1.40 H 1.05 H Total Protein 5.9 L Urine Protein Trace H Urine Blood Trace H Ur Leukocyte Esterase Small H Urine RBC 6 H Assessment and Plan Assessment: * Probable TIA manifesting with drooling and transient aphasia, that resolved in about 1-1/2 hours. * Bilateral ICA stenosis, 50% right, 25% left, as per CTA. * Hypertension * Hyperlipidemia * Prosthetic left eye Plan: * Patient has probable TIA. Her symptoms have resolved, with current NIH stroke scale is 0. * Patient was not taking any antiplatelet medication. Patient will be given aspirin 324 mg stat, and then 81 mg daily. Patient will be placed on DAP with Plavix 75 mg as well for 21 days. Thereafter stop Plavix and continue aspirin. * CTA of head and neck revealed no evidence of dissection of the cervical internal carotid arteries or vertebral arteries. No evidence of intracranial high-grade stenosis or intracranial aneurysm. 50% stenosis of the right ICA and 25% stenosis of the left carotid bifurcation. * Fasting a.m. lipid panel, hemoglobin A1c. Recommend statins, but patient is ALLERGIC to statins. We will defer to IM. * Telemetry monitoring * 2-D echo to rule out embolic source * DVT prophylaxis: Heparin 5000 units subcu every 12 hour. * Discussed with patient's son in detail. * Dr. Howard Tolbert Will resume neurology service in the morning. Thank you for the consult.
--- NOTE | 2023-04-10 02:39 | P.PN ---
Subjective Progress Note Date: 04/09/23 Patient is a 87-year-old female with a known history of hypertension, hypothyroidism, dementia and oriented x1-2 at baseline, anxiety/depression was brought to the hospital for possible strokelike symptoms. Patient could not provide much history. Her son was able to provide some history. She was having right lower abdominal and left groin pain yesterday and was seen by her primary care physician. Urine sample was obtained and patient was started on antibiotics in the form of ciprofloxacin. Today patient woke up in the morning and was able to take her breakfast and was up and walking suddenly started drooling and confused and unable to answer questions appropriately. Patient was brought to ER for further evaluation. Her symptoms were resolved by the time she came to the hospital. Currently her mentation is baseline. No facial droop or slurred speech noted. Denies any focal weakness. Patient is also complaining of right hip and groin pain. EKG showed sinus rhythm. CT head showed no acute intracranial process. Nonspecific white matter changes. CT angiogram of the head and neck showed no evidence of dissection of the cervical internal carotid arteries or vertebral arteries. No evidence of intracranial high-grade stenosis or intracranial aneurysm. 50% stenosis of the right ICA and 25% stenosis of the left ICA bifurcation. Chest x-ray showed no acute cardiopulmonary process. Hip x-ray showed moderate to severe right hip osteoarthrosis. Laboratory data showed WBC 6.3 hemoglobin 13.1 and platelets 193 Urinalysis is negative for.. Data sodium 139 potassium 4.6 BUN 31 creatinine 1.4 04/09/2023 Patient is currently sitting in the chair. Awake alert and oriented x2 and is a t baseline. Patient's son is at bedside. No further episodes of drooling after aphasic episodes. Patient underwent up stroke work-up including CT head and CT angiogram of head and neck. Neurology recommends to continue aspirin and Plavix was added for 21 days. 2D echocardiogram was ordered to rule out embolic phenomenon. Otherwise no acute overnight issues. Laboratory data showed sodium 140 potassium 4.7 chloride 109 bicarb is 26 BUN 23 creatinine improved to 1.05., B12 284 and folate pending. TSH 1.17. Follow-up A1c level. Current medications reviewed. Objective - Vital Signs Vital signs: Vital Signs Temp 97.7 F 04/09/23 20:00 Pulse 64 04/09/23 20:00 Resp 18 04/09/23 20:00 BP 155/69 04/09/23 20:00 Pulse Ox 97 04/09/23 20:00 FiO2 Intake & Output 04/09/23 04/09/23 04/10/23 06:59 18:59 06:59 Intake Total 480 Output Total 800 Balance -320 Intake: Oral 480 Output: Urine 800 Other: Voiding Method Toilet Toilet # Voids 1 2 1 - Exam PHYSICAL EXAMINATION: Patient is lying in the bed comfortably, no acute distress, awake alert and oriented x2.. HEENT: Normocephalic. Neck is supple. Pupils reactive. Nostrils clear. Oral cavity is moist. Neck reveals no JVD, carotid bruits, or thyromegaly. CHEST EXAMINATION: Trachea is central. Symmetrical expansion. Lung rodriguez clear to auscultation and percussion. CARDIAC: Normal S1, S2 with no gallops. No murmurs ABDOMEN: Soft. Bowel sounds present. Nontender. No organomegaly. No abdominal bruits. Extremities: reveal no edema. No clubbing or cyanosis Neurologically awake, alert, oriented x2. Able to move extremities while in bed. No gross focal neurological deficit. Patient does have cognitive impairment. Skin: No rash or skin lesions. Psychiatric: Coperative. Nonsuicidal, Musculoskeletal: No joint swelling or deformity. Normal range of motion. - Labs CBC & Chem 7: 04/08/23 12:24 04/09/23 06:04 Labs: Abnormal Lab Results - Last 24 Hours (Table) 04/09/23 Range/Units 06:04 Chloride 109 H (98-107) mmol/L BUN 23 H (7-17) mg/dL Creatinine 1.05 H (0.52-1.04) mg/dL Total Protein 5.9 L (6.3-8.2) g/dL Assessment and Plan Assessment: Altered mental status. Patient was drooling and unable to answer questions appropriately as per family. Rule out TIA versus metabolic encephalopathy. Mentation back to baseline. Hypertensive urgency with SBP greater than 200 on admission. Acute urinary tract infection diagnosed yesterday at PCPs office and is on antibiotics. Right lower abdominal pain and groin pain. Acute kidney injury likely prerenal. improved, Hypertension Hypothyroidism Osteoarthritis Anxiety/depression Dementia. Patient is awake alert and oriented x2 at baseline. DVT prophylaxis with heparin subcu Plan: Patient will be continued on IV hydration with normal saline. Monitor renal function. Will be continued on antibiotics in the form of ceftriaxone for recent urinary tract infection diagnosed yesterday at PCPs office.. Patient had stroke work-up including CT head, CT angiogram of the head and neck was done. TSH within normal limits. Low normal B12 level and follow-up for folate level. A1c level was ordered. 2D echocardiogram without embolic phenomenon. Neurology is on board. Continue with aspirin and Plavix for 21 days. Continue with aspirin thereafter. Right hip x-ray to ruled out any fractures. Patient does take lisinopril/hydrochlorothiazide at home which is on hold due to BENJI. Patient was started on Norvasc and titrate blood pressure medications as needed. Patient's mentation is back to baseline as per family. Continue to follow closely. Prognosis is guarded. Time with Patient: Greater than 30
[2023-04-10] MEDS: SODIUM CHLORIDE 0.9% 1,000 ML IV SCH (02:54)
[2023-04-10] MEDS: LEVOTHYROXINE 88 MCG TAB PO SCH (05:51)
[2023-04-10 06:33] LABS: African American GFR (CKD) 51 (>60 ml/min/1.73 sqM); Anion Gap 3 mmol/L; Blood Urea Nitrogen 20 mg/dL (7-17); Calcium 9.1 mg/dL (8.4-10.2); Carbon Dioxide 27 mmol/L (22-30); Chloride 109 mmol/L (98-107); Glucose 87 mg/dL (74-99); Non-African American GFR(CKD) 44 (>60 ml/min/1.73 sqM); Sodium 139 mmol/L (137-145)
[2023-04-10 06:44] LABS: Potassium 5.3 mmol/L (3.5-5.1)
[2023-04-10] MEDS ORDERED: ASPIRIN 81 MG PO SCH (09:00)
[2023-04-10] MEDS: HEPARIN SODIUM,PORCINE/PF 5,000 UNIT/0.5 ML SYRINGE SQ SCH (09:40)
[2023-04-10] MEDS: hydrALAZINE HCL 25 MG TAB PO SCH ×2 (09:40→16:06)
[2023-04-10] MEDS: amLODIPine 5 MG TAB PO SCH (09:40)
[2023-04-10] MEDS: CLOPIDOGREL 75 MG TAB PO SCH (09:40)
[2023-04-10] MEDS: CITALOPRAM HYDROBROMIDE 10 MG TAB PO SCH (09:40)
--- NOTE | 2023-04-10 11:34 | P.PN ---
Subjective Progress Note Date: 04/10/23 I'm seeing the patient for the first time during his hospital visit. Please refer to Dr. Low for further details. Since the patient had an episode of recent UTI and the she reported that she had drooling and aphasia that has resolved. There is concern that was a TIA. Her B12 was low normal and it was 284. Patient feels she is back to baseline. Denies of any new neurological issues. Per the nurse that she feels she is doing drastically better. Objective - Vital Signs Vital signs: Vital Signs Temp 97.8 F 04/10/23 07:00 Pulse 58 L 04/10/23 07:00 Resp 14 04/10/23 07:00 BP 157/66 04/10/23 07:00 Pulse Ox 99 04/10/23 07:00 FiO2 Intake & Output 04/09/23 04/10/23 04/10/23 18:59 06:59 18:59 Intake Total 480 118 Output Total 800 Balance -320 118 Intake: Oral 480 118 Output: Urine 800 Other: Voiding Method Toilet # Voids 2 1 1 - Exam Neuro exam Patient is awake alert oriented to self place and time. No aphasia and no neglect. No facial weakness noted dysarthria Motor is the strength is 5 out of 5 throughout Sensory is normal to touch throughout - Labs CBC & Chem 7: 04/08/23 12:24 04/10/23 05:37 Labs: Abnormal Lab Results - Last 24 Hours (Table) 04/10/23 Range/Units 05:37 Potassium 5.3 H (3.5-5.1) mmol/L Chloride 109 H (98-107) mmol/L BUN 20 H (7-17) mg/dL Creatinine 1.13 H (0.52-1.04) mg/dL Assessment and Plan Assessment: * Probable TIA manifesting with drooling and transient aphasia, that resolved in about 1-1/2 hours. Cannot exclude her recent underlying infection (UTI) was culprit of her manifestation. * Bilateral ICA stenosis, 50% right, 25% left, as per CTA. * Very low normal Vitamin B12 (284) * Recent UTI * Hypertension * Hyperlipidemia * Prosthetic left eye Plan: * Patient has probable TIA. Her symptoms have resolved, with current NIH stroke scale is 0. * Patient was not taking any antiplatelet medication. Patient will be given aspirin 324 mg stat, and then [address] Low, patient will be placed on DAP with Plavix 75 mg as well for 21 days then thereafter stop Plavix and continue aspirin. * CTA of head and neck revealed no evidence of dissection of the cervical internal carotid arteries or vertebral arteries. No evidence of intracranial high-grade stenosis or intracranial aneurysm. 50% stenosis of the right ICA and 25% stenosis of the left carotid bifurcation. * Fasting a.m. lipid panel: pending, hemoglobin A1c:5.5. Recommend statins, but patient is ALLERGIC to statins. We will defer to IM. * Telemetry monitoring * 2-D echo to rule out embolic source * By B12 is 284 since it's low-normal she was given vitamin B12 IM 1000 g once. I started on the by mouth. * Ref blood cell folate is a 23. TSH is 1.170 * DVT prophylaxis: Heparin 5000 units subcu every 12 hour. Plan discussed with the patient and her nurse was at bedside. Time with Patient: Less than 30
[2023-04-10 11:35] LABS: Chol/HDL Ratio 4.05 Ratio; LDL Cholesterol,Calculated 134.8 mg/dL (0.0-131.0)
--- NOTE | 2023-04-10 14:13 | CA ---
Transthoracic Echo Report Name: Adry Sanchez Age: 87 Gender: F : 1935 Exam Date: 04/10/2023 12:26 Exam Location: [place] [facility] Ht (in): 62 Wt (lb): 140 Ordering Physician: Preeti Low MD Attending/Referring Phys: [employer] Joanne Vidales RDCS Procedure CPT: Indications: tia Cardiac Hx: Technical Quality: Fair Contrast 1: Total Dose (mL): Contrast 2: Total Dose (mL): MEASUREMENTS (Male / Female) Normal Values 2D ECHO LV Diastolic Diameter PLAX 3.4 cm 4.2 - 5.9 / 3.9 - 5.3 cm LV Systolic Diameter PLAX 2.4 cm IVS Diastolic Thickness 1.1 cm 0.6 - 1.0 / 0.6 - 0.9 cm LVPW Diastolic Thickness 1.8 cm 0.6 - 1.0 / 0.6 - 0.9 cm LV Relative Wall Thickness 0.8 RV Internal Dim ED PLAX 2.7 cm LA Volume 82.3 cm??? 18 - 58 / 22 - 52 cm??? M-MODE Aortic Root Diameter MM 3.6 cm LA Systolic Diameter MM 4.2 cm LA Ao Ratio MM 1.2 AV Cusp Separation MM 2.1 cm DOPPLER AV Peak Velocity 154.0 cm/s AV Peak Gradient 9.5 mmHg AV Mean Velocity 109.0 cm/s AV Mean Gradient 5.1 mmHg AV Velocity Time Integral 31.5 cm AI Peak Velocity 480.9 cm/s AI Peak Gradient 92.5 mmHg AI Pressure Half Time 512.9 ms LVOT Peak Velocity 114.3 cm/s LVOT Peak Gradient 5.2 mmHg LVOT Velocity Time Integral 25.8 cm MV Area PHT 3.2 cm??? Mitral E Point Velocity 69.9 cm/s Mitral A Point Velocity 65.5 cm/s Mitral E to A Ratio 1.1 MV Deceleration Time 234.5 ms MV E' Velocity 4.8 cm/s Mitral E to MV E' Ratio 14.5 TR Peak Velocity 236.0 cm/s TR Peak Gradient 22.3 mmHg Right Ventricular Systolic Press 27.3 mmHg FINDINGS Left Ventricle Moderately increased left ventricular wall thickness. Left ventricular cavity size normal. Normal left ventricular systolic function with no obvious regional wall motion abnormalities. Left ventricular ejection fraction is estimated at 55-60 %. Right Ventricle Normal right ventricular size and function. Right ventricular systolic pressure within normal limits. Right Atrium Normal right atrial size. Left Atrium Severely increased left atrial volume. Mildly increased left atrial area. Mitral Valve Structurally normal mitral valve. Moderate mitral annular calcification. Mild- to-moderate mitral regurgitation. Aortic Valve Trileaflet aortic valve. Thickened aortic valve without stenosis. Mild aortic regurgitation. Tricuspid Valve Structurally normal tricuspid valve. Mild tricuspid regurgitation. Pulmonic Valve Trace pulmonic regurgitation. Pericardium No pericardial effusion. Aorta Normal size aortic root and proximal ascending aorta. CONCLUSIONS Left ventricular ejection fraction 55-60% Moderate increased left ventricular wall thickness Moderately dilated left atrium Mild to moderate mitral regurgitation Mild aortic regurgitation No pericardial effusion Previewed by: Dr. Clifford Chávez DO (Electronically Signed) Final Date: 10 April 2023 14:12
[2023-04-10 14:17] VITALS: BP 150/78; PULSE 64; RESP 16; TEMP 98.3
--- NOTE | 2023-04-11 06:28 | P.DS ---
Providers Date of admission: 04/08/23 14:22 Expected date of discharge: 04/10/23 Attending physician: Rigoberto Antonio Consults: 04/08/23 14:22 Consult Physician Routine Consulting Provider: Preeti Low Consult Reason/Comments: tia Do you want consulting provider notified?: Yes Primary care physician: Ivan Jerez Hospital Course: Final diagnosis Altered mental status. Patient was drooling and unable to answer questions appropriately as per family. Possible TIA versus metabolic encephalopathy. Improved Hypertensive urgency with SBP greater than 200 on admission. Acute urinary tract infection diagnosed yesterday at PCPs office and is on antibiotics. Right lower abdominal pain and groin pain. Acute kidney injury likely prerenal. improved, Hypertension Hypothyroidism Osteoarthritis Anxiety/depression Dementia. Patient is awake alert and oriented x2 at baseline. DVT prophylaxis Full code Discharge disposition Patient is being discharged in a stable condition with guarded prognosis to home. Patient will follow-up with Dr. Jerez in the outpatient setting upon discharge. Patient is to continue with aspirin and Plavix for 21 days and then may discontinue Plavix and continue with aspirin indefinitely. Patient to follow-up with neurology in the outpatient setting. Total time taken is greater than 35 minutes. Hospital course This is a 87-year-old female who was recently admitted with increased confusion and altered mentation with concerns of strokelike symptoms being closely monitored. Neurology evaluated the patient and workup was negative and had 2-D echo done and patient will continue on aspirin and Plavix for 21 days and then discontinue Plavix and continue just aspirin. Recommend close outpatient follow-up with neurologist along with associate quality engineer. Please refer to other consultation notes for further HPI. Patient is back to baseline and would like to go home. Currently no reports of chest pain, shortness of breath, or palpitations. Patient is afebrile. No reports of nausea or vomiting and patient is tolerating diet. Patient will be discharged home today. Guarded prognosis and high risk for readmission given patient's significant comorbidities Physical exam: Gen: This is a 87-year-old female who is awake, alert and oriented 2, back at baseline per family, well-developed, well-nourished, elderly-appearing HEENT: Head is atraumatic, normocephalic. Pupils equal, round. Sclerae is anicteric. NECK: Supple. No JVD. No lymphadenopathy. No thyromegaly. LUNGS: Breath sounds diminished bilaterally with some scattered rhonchi. No intercostal retractions. HEART: S1, S2 are muffled ABDOMEN: Soft. Bowel sounds are present. No masses. No tenderness. EXTREMITIES: No pedal edema. No calf tenderness. NEUROLOGICAL: Patient is awake, alert and oriented x3. Cranial nerves 2 through 12 are grossly intact. Please refer to medication reconciliation sheet for a list of medications. The impression and plan of care has been dictated by Melinda Holland, Nurse Practitioner as directed. Dr. Paco MD I have performed a history and examination and MDM of this patient, discussed the same with the dictator, and agree with the dictator's assessment and plan as written ,documented as a scribe. Based on total visit time, I have performed more than 50% of the visit. Patient Condition at Discharge: Fair Plan - Discharge Summary Discharge Rx Participant: No New Discharge Prescriptions: New hydrALAZINE HCL [Apresoline] 25 mg PO TID #90 tab Aspirin 81 mg PO DAILY 30 Days #30 tab amLODIPine [Norvasc] 5 mg PO DAILY #30 tab Clopidogrel [Plavix] 75 mg PO DAILY 21 Days #21 tab Acetaminophen Tab [Tylenol] 650 mg PO Q6HR PRN tab PRN Reason: Fever And/ Or Pain Cyanocobalamin [Vitamin B-12] 1,000 mcg PO DAILY #30 tab Continue Multivit-Min/FA/Lycopen/Lutein [Centrum Silver Tablet] 0.5 tab PO DAILY Levothyroxine Sodium [Synthroid] 88 mcg PO DAILY Citalopram Hydrobromide [CeleXA] 10 mg PO DAILY Prevagen 1 cap PO DAILY Discontinued lisinopriL [Zestril] 10 mg PO DAILY Ciprofloxacin HCl [Cipro] 250 mg PO BID Discharge Medication List Citalopram Hydrobromide [CeleXA] 10 mg PO DAILY 04/08/23 [History] Levothyroxine Sodium [Synthroid] 88 mcg PO DAILY 04/08/23 [History] Multivit-Min/FA/Lycopen/Lutein [Centrum Silver Tablet] 0.5 tab PO DAILY 04/08/23 [History] Prevagen 1 cap PO DAILY 04/08/23 [History] Acetaminophen Tab [Tylenol] 650 mg PO Q6HR PRN tab 04/10/23 [Rx] Aspirin 81 mg PO DAILY 30 Days #30 tab 04/10/23 [Rx] Clopidogrel [Plavix] 75 mg PO DAILY 21 Days #21 tab 04/10/23 [Rx] Cyanocobalamin [Vitamin B-12] 1,000 mcg PO DAILY #30 tab 04/10/23 [Rx] amLODIPine [Norvasc] 5 mg PO DAILY #30 tab 04/10/23 [Rx] hydrALAZINE HCL [Apresoline] 25 mg PO TID #90 tab 04/10/23 [Rx] Follow up Appointment(s)/Referral(s): Ivan Jerez MD [Primary Care Provider] - 04/13/23 2:10 pm Linda Hopson MD [REFERRING] - 1 Week Clifford Chávez DO [STAFF PHYSICIAN] - 1 Week Ambulatory/Diagnostic Orders: Basic Metabolic Panel [LAB.AMB] Time Frame: 3 Days, Location: None Selected Activity/Diet/Wound Care/Special Instructions: DC after echo okay Activity Limited until follow-up Follow-up with primary care provider on discharge Follow-up with neurology outpatient Continue taking Plavix for 21 days and then may discontinue Continue taking aspirin daily Follow low potassium diet Recommend follow-up labs of BMP in the next 2-3 days Discharge Disposition: HOME WITH HOME HEALTH SERVICES
[2023-04-11] MEDS ORDERED: CYANOCOBALAMIN 500 MCG TAB PO SCH (09:00)
== END 2023-04-10 16:23 | disposition home health service (06) ==
LOC: EC 12:00 → 6NMEDSUR 14:22
PROVIDERS: ADMIT Hospitalist; ATTEND Hospitalist
DX: R41.82 Altered mental status, unspecified (principal); R47.01 Aphasia; N39.0 Urinary tract infection, site not specified; E78.00 Pure hypercholesterolemia, unspecified; I16.0 Hypertensive urgency; I10 Essential (primary) hypertension; F41.9 Anxiety disorder, unspecified; F32.A Depression, unspecified; E03.9 Hypothyroidism, unspecified; F03.90 Unspecified dementia, unspecified severity, without behavioral disturbance, psychotic disturbance, mood disturbance, and anxiety; N17.9 Acute kidney failure, unspecified; M16.11 Unilateral primary osteoarthritis, right hip; I65.23 Occlusion and stenosis of bilateral carotid arteries; Z87.891 Personal history of nicotine dependence; Z97.0 Presence of artificial eye; Z79.899 Other long term (current) drug therapy; Z79.890 Hormone replacement therapy; Z88.2 Allergy status to sulfonamides
CPT/HCPCS: 96361 ×2; 96365; 96366 ×3; 96372 ×2; 99285; 36415; 94760 ×2; 93005; 93306; 82747; 80061; 80053 ×2; 80048; 84443; 82607; 82550; 83735; 84100; 84484; 85025; 85610; 85730; 81001; 83036; 73502; 71046; 70496; 70450; 70498; G0378 ×3; J3420; J0696 ×3; Q9967; J1644 ×2

== ENCOUNTER 2023-08-15 16:45 | Inpatient (IN) | payer MEDICARE, OTHER ==
--- NOTE | 2023-08-15 17:11 | ED ---
Fall HPI - General Chief Complaint: Fall Stated Complaint: Fall, Head Lac Time Seen by Provider: 08/15/23 16:50 Source: EMS Mode of arrival: EMS Limitations: altered mental status - History of Present Illness Initial Comments: This patient is an 88-year-old woman who reportedly had a ground-level fall, and was found by neighbors. She reportedly has history of some dementia. It was reported that the patient initially alert and talking EMS, on arrival here more somnolent. The patient arousable and moves all extremities. Not giving any history here. MD Complaint: fall -: minutes(s) Fall From: standing When Fall Occurred: just prior to arrival Place Fall Occurred: street Loss of Consciousness: unsure Prolonged Down Time?: unclear - Related Data Home Medications Medication Instructions Recorded Confirmed Citalopram Hydrobromide [CeleXA] 10 mg PO DAILY 04/08/23 08/15/23 Levothyroxine Sodium [Synthroid] 88 mcg PO DAILY 04/08/23 08/15/23 Multivit-Min/FA/Lycopen/Lutein 0.5 tab PO DAILY 04/08/23 08/15/23 [Centrum Silver Tablet] Prevagen 1 cap PO DAILY 04/08/23 08/15/23 Latanoprost [Latanoprost 0.005%] 1 drop BOTH EYES HS 08/15/23 08/15/23 lisinopriL [Lisinopril] 10 mg PO DIRECTED 08/15/23 08/15/23 Previous Rx's Medication Instructions Recorded Acetaminophen Tab [Tylenol] 650 mg PO Q6HR PRN tab 04/10/23 Aspirin 81 mg PO DAILY 30 Days #30 tab 04/10/23 Clopidogrel [Plavix] 75 mg PO DAILY 21 Days #21 tab 04/10/23 Cyanocobalamin [Vitamin B-12] 1,000 mcg PO DAILY #30 tab 04/10/23 amLODIPine [Norvasc] 5 mg PO DAILY #30 tab 04/10/23 hydrALAZINE HCL [Apresoline] 25 mg PO TID #90 tab 04/10/23 Allergies Allergy/AdvReac Type Severity Reaction Status Date / Time cortisone Allergy Unknown Verified 08/15/23 16:58 Asacmby-TAW-KqU Reductase Allergy Unknown Verified 08/15/23 16:58 Inhibitor [Yjtgiii-Hme-Fji Reductase Inhibitor] Sulfa (Sulfonamide Allergy Unknown Verified 08/15/23 16:58 Antibiotics) Review of Systems ROS Statement: Those systems with pertinent positive or pertinent negative responses have been documented in the HPI. ROS Other: All systems not noted in ROS Statement are negative. Limitations: ROS unobtainable due to patients medical condition Past Medical History Past Medical History: Eye Disorder, Hypertension, Osteoarthritis (OA), Thyroid Disorder Additional Past Medical History / Comment(s): one functioning kidney, essential tremors hands, artificial left eye History of Any Multi-Drug Resistant Organisms: None Reported Past Surgical History: Hysterectomy, Orthopedic Surgery Additional Past Surgical History / Comment(s): left eye removed, right shoulder surg. Past Anesthesia/Blood Transfusion Reactions: Postoperative Nausea & Vomiting (PONV) Past Psychological History: Anxiety, Depression Smoking Status: Unknown if ever smoked Past Alcohol Use History: Occasional Past Drug Use History: None Reported - Past Family History Mother Family Medical History: No Reported History General Exam Limitations: altered mental status General appearance: alert Head exam: Present: normocephalic, other (Left frontal scalp hematoma and laceration) Eye exam: Present: normal appearance, PERRL, EOMI, periorbital swelling. Absent: scleral icterus, conjunctival injection, periorbital tenderness Neck exam: Present: normal inspection. Absent: tenderness Respiratory exam: Present: normal lung sounds bilaterally. Absent: respiratory distress, wheezes, rales, rhonchi, stridor, chest wall tenderness, accessory muscle use Cardiovascular Exam: Present: irregular rhythm, normal heart sounds. Absent: systolic murmur, diastolic murmur, rubs, gallop GI/Abdominal exam: Present: soft. Absent: distended, tenderness, guarding, rebound, rigid, mass Extremities exam: Present: normal inspection, full ROM, normal capillary refill. Absent: tenderness Back exam: Present: normal inspection. Absent: CVA tenderness (R), CVA tenderness (L), vertebral tenderness Neurological exam: Present: other (Patient is moving all 4 extremities. Though not purposeful. Not following commands.). Absent: motor sensory deficit Expanded Eye Response: (4) open spontaneously Motor Response: (5) localizes to pain Verbal Response: (1) no verbal response Skin exam: Present: warm, dry, normal color, other (Left frontal scalp laceration) Course Vital Signs 08/15/23 08/15/23 08/15/23 16:46 17:01 17:45 Temperature 97.6 F Pulse Rate 84 60 Pulse Rate [ Airport Operations Coordinator ] Respiratory 24 27 H Rate Blood Pressure 186/87 164/63 O2 Sat by Pulse 95 96 Oximetry 08/15/23 08/15/23 08/15/23 18:01 20:00 20:05 Temperature Pulse Rate 67 86 Pulse Rate [ 140 H Airport Operations Coordinator ] Respiratory 24 20 25 H Rate Blood Pressure 183/79 188/73 O2 Sat by Pulse 98 87 L Oximetry Medical Decision Making - Medical Decision Making Patient is an 88-year-old woman with ground-level fall. She is having deterioration in mental status and sent immediately for computed tomography scan which does reveal large, bilateral, intracranial hemorrhage. The patient's son arrived as the computed tomography scan was being interpreted, and I discussed results with him. He the patient states that his mother would not have wanted intubation or artificial life support. We discussed that with an intracranial hemorrhage of this nature patient would need to be treated by neurosurgery and even then that the prognosis is probably very poor, and the patient's son discussed with other family members. The consensus is that the patient should be made comfort care only. Case discussed with the hospitalist group who will admit patient started on morphine drip to titrate for comfort. Note that the patient did have rapid deterioration in the emergency department. By the time she had returned from going for CAT scan, posturing had developed, c onsistent with evidence of developing herniation. The patient had CT of the brain, which I interpreted as showing large bilateral intracranial hemorrhage, including intraventricular hemorrhage. No fracture is evident Chest x-ray, I interpreted to show no acute bony injury or pneumothorax Pelvis x-ray, I interpreted to show no acute bony injury Was pt. sent in by a medical professional or institution (, PA, DEVELOPER EVANGELIST, urgent care, hospital, or fpc...) When possible be specific @ -[No] Did you speak to anyone other than the patient for history (EMS, parent, family, police, friend...)? What history was obtained from this source @ -[No] Did you review nursing and triage notes (agree or disagree)? Why? @ -[I reviewed and agree with nursing and triage notes] Were old charts reviewed (outside hosp., previous admission, EMS record, old EKG, old radiological studies, urgent care reports/EKG's, fpc records)? Report findings @ -[No old charts were reviewed] Differential Diagnosis (chest pain, altered mental status, abdominal pain women, abdominal pain men, vaginal bleeding, weakness, fever, dyspnea, syncope, headache, dizziness, GI bleed, back pain, seizure, CVA, palpatations, mental health, musculoskeletal)? @ -[Differential CVA Traumatic subarachnoid hemorrhage, subdural hemorrhage, skull fracture, hemorrhagic stroke, brain tumor, atypical migraine, seizure,.... This is not meant to be an all-inclusive list EKG interpreted by me (3pts min.). @ -[As above] X-rays interpreted by me (1pt min.). @ -I interpreted as above CT interpreted by me (1pt min.). @ -I interpreted as above U/S interpreted by me (1pt. min.). @ -[None done] What testing was considered but not performed or refused? (CT, X-rays, U/S, labs)? Why? @ -[None] What meds were considered but not given or refused? Why? @ -[None] Did you discuss the management of the patient with other professionals (professionals i.e. , PA, DEVELOPER EVANGELIST, lab, RT, psych nurse, social media marketer, superintendent distribution, teacher, navy senior officer, watch caser)? Give summary @ -[Case discussed with admitting physician Was smoking cessation discussed for >3mins.? @ -[No] Was critical care preformed (if so, how long)? @ -[Yesterday minutes Were there social determinants of health that impacted care today? How? (Homelessness, low income, unemployed, alcoholism, drug addiction, transportat ion, low edu. Level, literacy, decrease access to med. care, fpc, rehab)? @ -[No] Was there de-escalation of care discussed even if they declined (Discuss DNR or withdrawal of care, Hospice)? DNR status @ -[Yes, see the above note What co-morbidities impacted this encounter? (DM, HTN, Smoking, COPD, CAD, Cancer, CVA, ARF, Chemo, Hep., AIDS, mental health diagnosis, sleep apnea, morbid obesity)? @ -[None] Was patient admitted / discharged? Hospital course, mention meds given and ro xochilt, prescriptions, significant lab abnormalities, going to OR and other pertinent info. @ -[Admitted, see above Undiagnosed new problem with uncertain prognosis? @ -[No] Drug Therapy requiring intensive monitoring for toxicity (Heparin, Nitro, Insulin, Cardizem)? @ -[No] Were any procedures done? @ -[No] Diagnosis/symptom? @ -[Acute traumatic subarachnoid hemorrhage Acute, or Chronic, or Acute on Chronic? @ -[Acute Uncomplicated (without systemic symptoms) or Complicated (systemic symptoms)? @ -[Complicated by neurologic symptoms Side effects of treatment? @ -[No] Exacerbation, Progression, or Severe Exacerbation? @ -[No] Poses a threat to life or bodily function? How? (Chest pain, USA, IA, pneumonia, PE, COPD, DKA, ARF, appy, cholecystitis, CVA, Diverticulitis, Homicidal, Suicidal, threat to staff... and all critical care pts) @ -[Yes, see above - Lab Data Result diagrams: 08/15/23 17:04 08/15/23 17:04 Lab Results 08/15/23 08/15/23 08/15/23 Range/Units 17:04 17:04 17:04 WBC 8.8 (3.8-10.6) k/uL RBC 3.96 (3.80-5.40) m/uL Hgb 12.5 (11.4-16.0) gm/dL Hct 36.3 (34.0-46.0) % MCV 91.6 (80.0-100.0) fL MCH 31.6 (25.0-35.0) pg MCHC 34.5 (31.0-37.0) g/dL RDW 12.6 (11.5-15.5) % Plt Count 215 (150-450) k/uL MPV 8.1 Neutrophils % 70 % Lymphocytes % 21 % Monocytes % 4 % Eosinophils % 3 % Basophils % 0 % Neutrophils # 6.2 (1.3-7.7) k/uL Lymphocytes # 1.9 (1.0-4.8) k/uL Monocytes # 0.4 (0-1.0) k/uL Eosinophils # 0.2 (0-0.7) k/uL Basophils # 0.0 (0-0.2) k/uL PT 9.9 L (10.0-12.5) sec INR 0.9 (<1.2) APTT 23.4 (22.0-30.0) sec Sodium (137-145) mmol/L Potassium (3.5-5.1) mmol/L Chloride (98-107) mmol/L Carbon Dioxide (22-30) mmol/L Anion Gap mmol/L BUN (7-17) mg/dL Creatinine (0.52-1.04) mg/dL Est GFR (CKD-EPI)AfAm (>60 ml/min/1.73 sqM) Est GFR (CKD-EPI)NonAf (>60 ml/min/1.73 sqM) Glucose (74-99) mg/dL POC Glucose (mg/dL) (70-110) mg/dL POC Glu Take Away Attendant ID Plasma Lactic Acid Carlitos (0.7-2.0) mmol/L Calcium (8.4-10.2) mg/dL Total Bilirubin (0.2-1.3) mg/dL AST (14-36) U/L ALT (4-34) U/L Alkaline Phosphatase (38-126) U/L Troponin I (0.000-0.034) ng/mL Total Protein (6.3-8.2) g/dL Albumin (3.5-5.0) g/dL Urine Color Yellow Urine Appearance Slightly Cloudy H (Clear) Urine pH 6.0 (5.0-8.0) Ur Specific Malone 1.020 (1.001-1.035) Urine Protein Negative (Negative) Urine Glucose (UA) Negative (Negative) Urine Ketones Negative (Negative) Urine Blood Moderate (Negative) Urine Nitrite Negative (Negative) Urine Bilirubin Negative (Negative) Urine Urobilinogen <2.0 (<2.0) mg/dL Ur Leukocyte Esterase Moderate (Negative) Urine RBC 14 H (0-5) /hpf Urine WBC 4 (0-5) /hpf Ur Squamous Epith Cells <1 (0-4) /hpf Urine Mucus Rare H (None) /hpf Urine Opiates Screen Not Detected (NotDetected) Ur Oxycodone Screen Not Detected (NotDetected) Urine Methadone Screen Not Detected (NotDetected) Ur Propoxyphene Screen Not Detected (NotDetected) Ur Barbiturates Screen Not Detected (NotDetected) U Tricyclic Antidepress Not Detected (NotDetected) Ur Phencyclidine Scrn Not Detected (NotDetected) Ur Amphetamines Screen Not Detected (NotDetected) U Methamphetamines Scrn Not Detected (NotDetected) U Benzodiazepines Scrn Not Detected (NotDetected) Urine Cocaine Screen Not Detected (NotDetected) U Marijuana (THC) Screen Not Detected (NotDetected) Serum Alcohol mg/dL Blood Type Blood Type Confirm Blood Type Recheck Bld Type Recheck Status Antibody Screen Spec Expiration Date 08/15/23 08/15/23 08/15/23 Range/Units 17:04 17:04 17:04 WBC (3.8-10.6) k/uL RBC (3.80-5.40) m/uL Hgb (11.4-16.0) gm/dL Hct (34.0-46.0) % MCV (80.0-100.0) fL MCH (25.0-35.0) pg MCHC (31.0-37.0) g/dL RDW (11.5-15.5) % Plt Count (150-450) k/uL MPV Neutrophils % % Lymphocytes % % Monocytes % % Eosinophils % % Basophils % % Neutrophils # (1.3-7.7) k/uL Lymphocytes # (1.0-4.8) k/uL Monocytes # (0-1.0) k/uL Eosinophils # (0-0.7) k/uL Basophils # (0-0.2) k/uL PT (10.0-12.5) sec INR (<1.2) APTT (22.0-30.0) sec Sodium 141 (137-145) mmol/L Potassium 4.7 (3.5-5.1) mmol/L Chloride 106 (98-107) mmol/L Carbon Dioxide 25 (22-30) mmol/L Anion Gap 10 mmol/L BUN 25 H (7-17) mg/dL Creatinine 1.17 H (0.52-1.04) mg/dL Est GFR (CKD-EPI)AfAm 48 (>60 ml/min/1.73 sqM) Est GFR (CKD-EPI)NonAf 42 (>60 ml/min/1.73 sqM) Glucose 102 H (74-99) mg/dL POC Glucose (mg/dL) (70-110) mg/dL POC Glu Take Away Attendant ID Plasma Lactic Acid Carlitos 1.6 (0.7-2.0) mmol/L Calcium 9.5 (8.4-10.2) mg/dL Total Bilirubin 0.3 (0.2-1.3) mg/dL AST 30 (14-36) U/L ALT 17 (4-34) U/L Alkaline Phosphatase 79 (38-126) U/L Troponin I <0.012 (0.000-0.034) ng/mL Total Protein 6.7 (6.3-8.2) g/dL Albumin 4.1 (3.5-5.0) g/dL Urine Color Urine Appearance (Clear) Urine pH (5.0-8.0) Ur Specific Malone (1.001-1.035) Urine Protein (Negative) Urine Glucose (UA) (Negative) Urine Ketones (Negative) Urine Blood (Negative) Urine Nitrite (Negative) Urine Bilirubin (Negative) Urine Urobilinogen (<2.0) mg/dL Ur Leukocyte Esterase (Negative) Urine RBC (0-5) /hpf Urine WBC (0-5) /hpf Ur Squamous Epith Cells (0-4) /hpf Urine Mucus (None) /hpf Urine Opiates Screen (NotDetected) Ur Oxycodone Screen (NotDetected) Urine Methadone Screen (NotDetected) Ur Propoxyphene Screen (NotDetected) Ur Barbiturates Screen (NotDetected) U Tricyclic Antidepress (NotDetected) Ur Phencyclidine Scrn (NotDetected) Ur Amphetamines Screen (NotDetected) U Methamphetamines Scrn (NotDetected) U Benzodiazepines Scrn (NotDetected) Urine Cocaine Screen (NotDetected) U Marijuana (THC) Screen (NotDetected) Serum Alcohol <10 mg/dL Blood Type Blood Type Confirm Blood Type Recheck Bld Type Recheck Status Antibody Screen Spec Expiration Date 08/15/23 08/15/23 08/15/23 Range/Units 17:04 17:05 17:10 WBC (3.8-10.6) k/uL RBC (3.80-5.40) m/uL Hgb (11.4-16.0) gm/dL Hct (34.0-46.0) % MCV (80.0-100.0) fL MCH (25.0-35.0) pg MCHC (31.0-37.0) g/dL RDW (11.5-15.5) % Plt Count (150-450) k/uL MPV Neutrophils % % Lymphocytes % % Monocytes % % Eosinophils % % Basophils % % Neutrophils # (1.3-7.7) k/uL Lymphocytes # (1.0-4.8) k/uL Monocytes # (0-1.0) k/uL Eosinophils # (0-0.7) k/uL Basophils # (0-0.2) k/uL PT (10.0-12.5) sec INR (<1.2) APTT (22.0-30.0) sec Sodium (137-145) mmol/L Potassium (3.5-5.1) mmol/L Chloride (98-107) mmol/L Carbon Dioxide (22-30) mmol/L Anion Gap mmol/L BUN (7-17) mg/dL Creatinine (0.52-1.04) mg/dL Est GFR (CKD-EPI)AfAm (>60 ml/min/1.73 sqM) Est GFR (CKD-EPI)NonAf (>60 ml/min/1.73 sqM) Glucose (74-99) mg/dL POC Glucose (mg/dL) 116 H (70-110) mg/dL POC Glu Take Away Attendant ID Belkys Harris Plasma Lactic Acid Carlitos (0.7-2.0) mmol/L Calcium (8.4-10.2) mg/dL Total Bilirubin (0.2-1.3) mg/dL AST (14-36) U/L ALT (4-34) U/L Alkaline Phosphatase (38-126) U/L Troponin I (0.000-0.034) ng/mL Total Protein (6.3-8.2) g/dL Albumin (3.5-5.0) g/dL Urine Color Urine Appearance (Clear) Urine pH (5.0-8.0) Ur Specific Malone (1.001-1.035) Urine Protein (Negative) Urine Glucose (UA) (Negative) Urine Ketones (Negative) Urine Blood (Negative) Urine Nitrite (Negative) Urine Bilirubin (Negative) Urine Urobilinogen (<2.0) mg/dL Ur Leukocyte Esterase (Negative) Urine RBC (0-5) /hpf Urine WBC (0-5) /hpf Ur Squamous Epith Cells (0-4) /hpf Urine Mucus (None) /hpf Urine Opiates Screen (NotDetected) Ur Oxycodone Screen (NotDetected) Urine Methadone Screen (NotDetected) Ur Propoxyphene Screen (NotDetected) Ur Barbiturates Screen (NotDetected) U Tricyclic Antidepress (NotDetected) Ur Phencyclidine Scrn (NotDetected) Ur Amphetamines Screen (NotDetected) U Methamphetamines Scrn (NotDetected) U Benzodiazepines Scrn (NotDetected) Urine Cocaine Screen (NotDetected) U Marijuana (THC) Screen (NotDetected) Serum Alcohol mg/dL Blood Type O Positive Blood Type Confirm O Positive Blood Type Recheck No Previous Record Bld Type Recheck Status CABO Indicated Antibody Screen NEGATIVE Spec Expiration Date 08/18/20232303 - EKG Data -: EKG Interpreted by Me EKG shows normal: sinus rhythm (With frequent premature supraventricular complexes, rate 97 bpm), axis (Normal), intervals (Normal), ST-T waves (Normal) Rate: normal Disposition Clinical Impression: Fall, Intracranial hemorrhage Disposition: ADMITTED IP TO THIS [facility] Condition: Poor Is patient prescribed a controlled substance at d/c from ED?: No
[2023-08-15 17:13] LABS: Glucose,Whole Blood 116 mg/dL (70-110)
[2023-08-15 17:22] LABS: Basophils % (A) 0 %; Eosinophils # (A) 0.2 k/uL (0-0.7); Eosinophils % (A) 3 %; HCT 36.3 % (34.0-46.0); HGB 12.5 gm/dL (11.4-16.0); Lymphocytes # (A) 1.9 k/uL (1.0-4.8); Lymphocytes % (A) 21 %; MCH 31.6 pg (25.0-35.0); MCHC 34.5 g/dL (31.0-37.0); MCV 91.6 fL (80.0-100.0); Mean Platelet Volume 8.1; Monocytes # (A) 0.4 k/uL (0-1.0); Monocytes % (A) 4 %; Neutrophils # (A) 6.2 k/uL (1.3-7.7); Neutrophils % (A) 70 %; Platelet Count 215 k/uL (150-450); RBC 3.96 m/uL (3.80-5.40); RDW 12.6 % (11.5-15.5); WBC 8.8 k/uL (3.8-10.6)
[2023-08-15] MEDS ORDERED: MORPHINE SULFATE 4 MG/ML SYRINGE IV STA ×2 (17:24→17:38)
[2023-08-15 17:31] LABS: INR 0.9 (<1.2); Partial Thromboplastin Time 23.4 sec (22.0-30.0); Prothrombin Time 9.9 sec (10.0-12.5)
[2023-08-15] MEDS ORDERED: ONDANSETRON 4 MG/2 ML VIAL IVP STA ×2 (17:31→19:39)
--- NOTE | 2023-08-15 17:33 | XR ---
EXAMINATION TYPE: XR pelvis AP view DATE OF EXAM: 08/15/2023 5:23 PM CLINICAL INDICATION:Female, 88 years old with history of Trauma; [facility] COMPARISON: None TECHNIQUE: The pelvis was examined in a single projection. FINDINGS: There is no evidence of fracture or dislocation. There is no soft tissue abnormality. No a bnormal calcifications are present. The spine appears intact. Joint space narrowing with osteophyte f ormation of the bilateral hips. Degeneration changes of the spine. IMPRESSION: 1. No acute osseous pathology. 2. Severe bilateral hip osteoporosis.
--- NOTE | 2023-08-15 17:34 | XR ---
EXAMINATION TYPE: XR chest 1V portable DATE OF EXAM: 08/15/2023 5:23 PM CLINICAL INDICATION:Female, 88 years old with history of trauma; [facility] COMPARISON: Chest radiographs from 04/08/2023 TECHNIQUE: XR chest 1V portable Frontal view of the chest. FINDINGS: Lungs/Pleura: Low lung volumes are present. There is no evidence of pleural effusion, focal consolida tion, or pneumothorax. Pulmonary vascularity: Pulmonary vascular congestion. Heart/mediastinum: Cardiomediastinal silhouette is prominent in size. Musculoskeletal: No acute osseous pathology. Partial arthroplasty with hardware intact. IMPRESSION: Low lung volumes with a generalized hazy appearance which could represent atelectasis versus pulmonar y edema correlate with serum BNP.
[2023-08-15 17:36] LABS: ALT 17 U/L (4-34); AST 30 U/L (14-36); African American GFR (CKD) 48 (>60 ml/min/1.73 sqM); Albumin 4.1 g/dL (3.5-5.0); Alcohol <10 mg/dL; Alkaline Phosphatase 79 U/L (38-126); Anion Gap 10 mmol/L; Blood Urea Nitrogen 25 mg/dL (7-17); Calcium 9.5 mg/dL (8.4-10.2); Carbon Dioxide 25 mmol/L (22-30); Chloride 106 mmol/L (98-107); Glucose 102 mg/dL (74-99); Non-African American GFR(CKD) 42 (>60 ml/min/1.73 sqM); Potassium 4.7 mmol/L (3.5-5.1); Sodium 141 mmol/L (137-145); Total Bilirubin 0.3 mg/dL (0.2-1.3); Total Protein 6.7 g/dL (6.3-8.2)
--- NOTE | 2023-08-15 17:44 | CT ---
EXAMINATION TYPE: CT brain cspine wo con CT DLP: 1549.4 mGycm, Automated exposure control for dose reduction was used. DATE OF EXAM: 08/15/2023 5:22 PM COMPARISON: None. CLINICAL INDICATION:Female, 88 years old with history of trauma; Fall, head trauma TECHNIQUE: Brain: Multiple axial CT images of the brain were obtained without IV contrast. Cspine: Axial CT images from the skull base to the inferior aspect of T2 we obtained without intraven ous contrast. Coronal and sagittal reformatted images were also reviewed. FINDINGS: Brain: Extra-axial spaces: High density blood products within the sulci most pronounced in the right frontal lobe. Ventricular system: High density blood proximal within the bilateral lateral ventricles, third ventri zoraida, cerebral aqueduct and fourth ventricle. Cerebral parenchyma: Intraparenchymal hemorrhage involving and right temporal lobe the bilateral fron rosalie lobes . There is vasogenic edema around these hemorrhages. Cerebellum: Unremarkable. Mass effect: There is leftward at least 6 mm subfalcine herniation. Intracranial vasculature: unremarkable Soft tissues: Left frontal forehead scalp laceration with hematoma. Calvarium/osseous structures: No depressed skull fracture. Paranasal sinuses and mastoid air cells: Clear. Visualized orbits: Orbital contents are intact. Postsurgical changes of the left globe. Right aphakia . Cervical spine: Fracture: None. Osseous structures: Multilevel degenerative disc disease changes with endplate spurring and disc oste ophyte complex's. Vertebral alignment: Within normal limits. Spinal canal/Neural Foramina: Disc osteophyte complexes at C6-C7. With at least mild spinal canal stephany nosis. No evidence for significant neural foraminal stenosis. Neck soft tissues: Prevertebral soft tissues are within normal limits. IMPRESSION: 1. Extensive intracranial hemorrhage including, intraparenchymal bilateral frontal lobes and right t emporal lobe with intraventricular hemorrhage involving all the ventricles including the cerebral aqu educt. Subarachnoid hemorrhage also present. 2. No evidence of fracture. Findings communicated to Dr. Venkat Faulkner MD on 08/15/2023 5:[address] Mike Do.
[2023-08-15 17:50] LABS: Appearance,Urine Slightly Cloudy (Clear); Bilirubin,Urine Negative (Negative); Blood,Urine Moderate (Negative); Color,Urine Yellow; Glucose,Urine (UA) Negative (Negative); Ketones,Urine Negative (Negative); Leukocyte Esterase,Urine Moderate (Negative); Nitrite,Urine Negative (Negative); Protein,Urine Negative (Negative); Urobilinogen,Urine <2.0 mg/dL (<2.0)
[2023-08-15 17:54] LABS: Mucus,Urine Rare /hpf; RBC,Urine 14 /hpf (0-5); Squamous Epithelial Cell,Urine <1 /hpf (0-4); WBC,Urine 4 /hpf (0-5)
[2023-08-15] MEDS ORDERED: NALOXONE 0.4 MG/ML 1 ML VIAL IV PRN (17:59)
[2023-08-15] MEDS ORDERED: ONDANSETRON 4 MG/2 ML VIAL IVP PRN (17:59)
[2023-08-15 18:01] LABS: Amphetamine Screen,Urine Not Detected (NotDetected); Barbiturate Screen,Urine Not Detected (NotDetected); Benzodiazepines Screen,Urine Not Detected (NotDetected); Cocaine Screen,Urine Not Detected (NotDetected); Methadone Screen, Urine Not Detected (NotDetected); Opiate Screen,Urine Not Detected (NotDetected); Oxycodone Screen, Urine Not Detected (NotDetected); Phencyclidine Screen,Urine Not Detected (NotDetected); Tricyclic Antidepressant,Urine Not Detected (NotDetected); Urn Cannabinoid Scrn Not Detected (NotDetected)
[2023-08-15 18:06] VITALS: TEMP 97.6
[2023-08-15] MEDS: MORPHINE SULFATE (100 MG/2 ML) 100 MG in SODIUM CHLORIDE 0.9% 100 ML IV SCH (18:07)
[2023-08-15] MEDS: SODIUM CHLORIDE 0.9% 1,000 ML IV SCH (18:15)
[2023-08-15] MEDS ORDERED: SCOPOLAMINE 1 MG/72 HR PATCH TRANSDERM STA (18:34)
[2023-08-15] MEDS ORDERED: METOCLOPRAMIDE 5 MG/ML 2 ML VIAL IVP STA (19:41)
[2023-08-15] MEDS ORDERED: LORazepam 2 MG/ML INJ IV PRN (20:42)
[2023-08-15] MEDS: ATROPINE OPHTH SOLN 1% 5ML BTL SUBLINGUAL PRN (21:21)
[2023-08-15 23:05] VITALS: BP 201/91
[2023-08-16] MEDS: ATROPINE OPHTH SOLN 1% 5ML BTL SUBLINGUAL PRN ×2 (03:34→09:32)
[2023-08-16] MEDS: MORPHINE SULFATE (100 MG/2 ML) 100 MG in SODIUM CHLORIDE 0.9% 100 ML IV SCH ×3 (05:00→23:34)
[2023-08-16] MEDS: SODIUM CHLORIDE 0.9% 1,000 ML IV SCH (17:22)
--- NOTE | 2023-08-16 20:44 | HP ---
HISTORY AND PHYSICAL CHIEF COMPLAINT: Fall and intracranial hemorrhage. HISTORY OF PRESENT ILLNESS: This is an 88-year-old woman with a past medical history of multiple medical problems, was admitted with ground-level fall and was found by the neighbors. The patient with dementia. The patient was found extensive bilateral frontal lobe hemorrhages and right temporal lobe hemorrhage and case was discussed with the family in the ER and the patient was made comfort measures and the patient is sedated. The patient is started on morphine drip, which is running at 9 mg/hour at this time. The patient is unable to give a coherent history, most history is taken by discussion with staff and discussion and review of chart at this time. PAST MEDICAL HISTORY: Reviewed include dementia, rest of the history is reviewed. HOME MEDICATIONS: Reviewed include Norvasc, rest of the medications reviewed. ALLERGIES: Cortisone, rest of the allergies are also noted. FAMILY HISTORY, SOCIAL HISTORY, AND REVIEW OF SYSTEMS: Could not be taken. PHYSICAL EXAMINATION: GENERAL: The patient is sedated as mentioned above. VITAL SIGNS: Pulse 91, blood pressure is 201/91, respirations 28. HEENT: Conjunctivae normal. NECK: No jugular venous distention. CARDIOVASCULAR: S1, S2. RESPIRATIONS: Few scattered rhonchi. ABDOMEN: Soft. NERVOUS SYSTEM: The patient is unresponsive. LABORATORY DATA: Reviewed. ASSESSMENT: 1. Fall and bilateral frontal as well as right temporal intracranial hemorrhage. 2. Change in mental status and acute toxic encephalopathy and coma. 3. History of dementia. 4. History of hypertension. 5. History of DJD. 6. Multiple complex medical issues. 7. No code, no CPR. 8. Hospice and comfort measures. RECOMMENDATIONS: This 88-year-old woman presented with multiple medical issues at this time. The patient's condition is gravely serious with extensive hemorrhages as noted earlier in the ER as already discussed with family and started on morphine drip. The patient is comfortable at this time. I had a detailed discussion with family. Questions were answered and I would recommend hospice consultation and continue with comfort measures. Once again, the prognosis is extremely guarded. MMCHINO / GARYN: [id number] /
[2023-08-17 06:02] VITALS: PULSE 0; RESP 0
--- NOTE | 2023-08-17 14:24 | P.DS ---
Providers Date of admission: 08/15/23 17:58 Expected date of discharge: 08/17/23 Attending physician: Rigoberto Antonio Primary care physician: Ivan Jerez Hospital Course: Preliminary cause of Intracranial hemorrhage Final diagnosis Followed bilateral frontal as well as right temporal intracranial hemorrhage Change in mental status and acute toxic encephalopathy with coma History of dementia History of hypertension History of degenerative joint disease No code Discharge disposition Patient has . According to nursing documentation, time of was 0450 on 08/17/2023. Patient was placed on comfort measures in the ER per family request and was maintained on morphine drip. Total time taken greater than 35 minutes. Hospital course This is an 88-year-old female who was brought into the emergency department aft er having a fall and was found by the neighbors. Patient with history of dementia was brought to the ER underwent computed tomography scan which showed an extensive intracranial hemorrhage including intraparenchymal bilateral frontal lobes and right temporal lobe with intraventricular hemorrhage involving the ventricles including cerebral aqueduct with a subarachnoid hemorrhage also noted. There is no evidence of fracture. Discussion was had with family in the ER at bedside given patient's age and overall prognosis family opted to proceed with comfort care measures. CODE STATUS was addressed and patient is no code. Patient was started on morphine drip in the ER and was continued on comfort care measures up on the unit. Patient 0450 on 08/17/2023. Please refer to ER documentation as well as nursing documentation for further HPI. The impression and plan of care has been dictated by Melinda Holland, Nurse Practitioner as directed. Dr. Paco MD I have performed a history and examination and MDM of this patient, discussed the same with the dictator, and agree with the dictator's assessment and plan as written ,documented as a scribe. Based on total visit time, I have performed more than 50% of the visit. Patient Condition at Discharge: Poor Plan - Discharge Summary Discharge Rx Participant: No New Discharge Prescriptions: No Action Multivit-Min/FA/Lycopen/Lutein [Centrum Silver Tablet] 0.5 tab PO DAILY Levothyroxine Sodium [Synthroid] 88 mcg PO DAILY Citalopram Hydrobromide [CeleXA] 10 mg PO DAILY hydrALAZINE HCL [Apresoline] 25 mg PO TID #90 tab Aspirin 81 mg PO DAILY 30 Days #30 tab amLODIPine [Norvasc] 5 mg PO DAILY #30 tab Clopidogrel [Plavix] 75 mg PO DAILY 21 Days #21 tab Acetaminophen Tab [Tylenol] 650 mg PO Q6HR PRN tab PRN Reason: Fever And/ Or Pain Cyanocobalamin [Vitamin B-12] 1,000 mcg PO DAILY #30 tab Prevagen 1 cap PO DAILY Latanoprost [Latanoprost 0.005%] 1 drop BOTH EYES HS lisinopriL [Lisinopril] 10 mg PO DIRECTED Discharge Medication List Citalopram Hydrobromide [CeleXA] 10 mg PO DAILY 04/08/23 [History] Levothyroxine Sodium [Synthroid] 88 mcg PO DAILY 04/08/23 [History] Multivit-Min/FA/Lycopen/Lutein [Centrum Silver Tablet] 0.5 tab PO DAILY 04/08/23 [History] Prevagen 1 cap PO DAILY 04/08/23 [History] Acetaminophen Tab [Tylenol] 650 mg PO Q6HR PRN tab 04/10/23 [Rx] Aspirin 81 mg PO DAILY 30 Days #30 tab 04/10/23 [Rx] Clopidogrel [Plavix] 75 mg PO DAILY 21 Days #21 tab 04/10/23 [Rx] Cyanocobalamin [Vitamin B-12] 1,000 mcg PO DAILY #30 tab 04/10/23 [Rx] amLODIPine [Norvasc] 5 mg PO DAILY #30 tab 04/10/23 [Rx] hydrALAZINE HCL [Apresoline] 25 mg PO TID #90 tab 04/10/23 [Rx] Latanoprost [Latanoprost 0.005%] 1 drop BOTH EYES HS 08/15/23 [History] lisinopriL [Lisinopril] 10 mg PO DIRECTED 08/15/23 [History] Follow up Appointment(s)/Referral(s): Ivan Jerez MD [Primary Care Provider] - 1-2 days Discharge Disposition: - Preliminary Cause of Preliminary Cause of : Intracranial hemorrhage
== END 2023-08-17 04:50 | disposition expired | DRG 82 ==
LOC: EC 16:45 → 3SCARD 17:58
PROVIDERS: ADMIT Hospitalist; ATTEND Hospitalist
DX: G92.9 Unspecified toxic encephalopathy; F03.90 Unspecified dementia, unspecified severity, without behavioral disturbance, psychotic disturbance, mood disturbance, and anxiety; R40.2313 Coma scale, best motor response, none, at hospital admission; R40.2113 Coma scale, eyes open, never, at hospital admission; R40.2213 Coma scale, best verbal response, none, at hospital admission; Z66 Do not resuscitate; Z51.5 Encounter for palliative care; S01.01XA Laceration without foreign body of scalp, initial encounter; I10 Essential (primary) hypertension; G25.0 Essential tremor; E07.9 Disorder of thyroid, unspecified; F32.A Depression, unspecified; F41.9 Anxiety disorder, unspecified; M19.90 Unspecified osteoarthritis, unspecified site; Z79.82 Long term (current) use of aspirin; Z79.02 Long term (current) use of antithrombotics/antiplatelets; Z79.890 Hormone replacement therapy; Z79.899 Other long term (current) drug therapy; Z90.01 Acquired absence of eye; W18.30XA Fall on same level, unspecified, initial encounter; Z88.2 Allergy status to sulfonamides; Z88.8 Allergy status to other drugs, medicaments and biological substances
CPT/HCPCS: 36415; 70450; 71045; 72125; 72170; 80053; 80306; 80320; 81001; 83605; 84484; 85025; 85610; 85730; 86850; 86900; 86901; 93005; 94760; 96374; 96375; 96376; 99285